=== PATIENT | male | born 1965 | race Caucasian/White ===

== ENCOUNTER 2020-08-26 06:02 | Inpatient (IN) | payer OTHER ==
--- OUTSIDE RECORDS SUMMARY | 2020-08-26 06:07 | XMS REPORT | Continuity of Care Document ---
:1965 Author Organization [facility] t Address [address] [place] [address] Care Team Providers Name Role Phone Ronnie Taylor Attending Clinician Eliud Taylor Admitting Clinician Problems Condition Condition Condition Status Onset Resolution Last Treating Co mments Source Name Details Category Date Date Treatment Clinician Date WEAKNESS Diagnosis Active 2019-08-14 M emoria 08-13 18:38:00 l WEAKNESS 00:00: [place] n 00 Active 08/14/2019 [place] NITHYA Diagnosis Active 2019-08-15 [facility] oria HEMATURIA/ 08-13 13:16:00 l ANEMIA NITHYA 00:00: [place] HEMATURIA/ 00 ANEMIA Active 08/14/2019 [facility] UTI, AMS, Diagnosis Active 2019-09-16 Memoria SEPSIS 08-13 13:26:00 l UTI, 00:00: [place] AMS, 00 SEPSIS Active 08/14/2019 [facility] ALTERED Diagnosis Active 2019-09-16 Me moria MENTAL 13:26:00 l STATUS, ALTERED Kiel n UNSPECIFIE MENTAL D STATUS, UNSPECIFIE D Active [facility] SEPSIS, Diagnosis Active 2019-09-16 Me moria UNSPECIFIE 13:26:00 l D ORGANISM SEPSIS, Her ramirez UNSPECIFIE D ORGANISM Active [facility] URINARY Diagnosis Active 2019-08-16 Me moria TRACT 16:40:00 l INFECTION, URINARY Her ramirez SITE NOT TRACT SPECIFIED INFECTION, SITE NOT SPECIFIED Active [facility] Bipolar Problem Active 2019-08-19 Yves summer disorder 22:00:09 l (disorder) Bipolar Her ramirez disorder (disorder) Active Problem 08/19/2019 [place] URINARY Diagnosis Active 2019-09-16 Me moria TRACT 13:26:00 l INFECTION, URINARY Her ramirez SITE NOT TRACT SPECIF INFECTION, SITE NOT SPECIF Active [facility] Allergies, Adverse Reactions, Alerts Allergy Allergy Status Severity Reaction(s) Onset Inactive Treating Comm ents Source Name Type Date Date Clinician No Known No Known Active Memori a Medicati Medicati l on on Tai Allergie Allergsarmad s s Social History Social Habit Start Date Stop Date Quantity Comments Source Social History 2019-06-01 2019-06-01 [facility] 10:40:52 10:40:52 Medications Ordered Filled Start Stop Current Ordering Indication Dosage Frequency Signature Comments Components Source Medication Medication Date Date Medication? Clinician (SIG) Name Name Cefuroxime Yes 500 mg = 1 M emoria 500 MG Oral 08-16 tab, PO, l Tablet 19:20: BID, X 7 [place] [Ceftin] 00 day, # 14 tab, 0 Refill(s), Pharmacy: [id number] Acetaminoph No Notes: Do M emoria en 08-15 not exceed l 12:59: 4 gm/day. [place] 00 (Same as: Tylenol) normal No 1,000 mL, Memori a saline 0.9% 08-15 Rate: 60 l IV 1,000 mL 12:52: ml/hr, Infuse over: 16.7 hr, Route: IV, Dosing Weight 95.455 kg, Total Volume: 1,000, Start date: 08/16/19 7:52:00 CDT, Duration: 1 day, Stop date: 08/17/19 7:51:00 CDT, 2.16, m2, 0 Famotidine No Notes: Memor ia 20 MG Oral 08-15 (Same as: l Tablet 02:00: Pepcid AC) Mariel[place] nn [Pepcid] Ceftriaxone No Notes: Yves summer - (Same As: l 21:00: Rocephin). Use with 100 mL NS and infuse over 30 min MEDICATION WASTE Product Size: 1000 mg Product Wasted: ___ mg phenol No Notes: Memoria 4-26 WASTE: F/P l 17:29: - Black; E - Municipal Trash Bin Docusate No Notes: Memoria Sodium 100 - (Same as: l MG Oral 17:29: Colace) [place] Capsule (Do Not [Colace] Crush) Hydralazine No Notes: Yves summer 08-14 (Same as: l 17:29: Apresoline Tai ) Push over 5 minutes Imodium A-D No Notes: Yves summer 08-14 (Same as: l 17:29: Imodium) Tai 00 MAX adult dose is 8 caps/day Miralax No Notes: Memoria - Dissolve l 17:29: in 8 oz of Tai 00 water or juice. (Same as: Miralax) Zyrtec No Notes: Memoria 08-14 (Same As: l 17:29: Zyrtec) Acetaminoph No Notes: Yves summer en 325 MG / 08-14 (Same as: l Hydrocodone 17:29: [place] Marielos nn Bitartrate 00 325/5) Do 5 MG Oral not exceed Tablet 4gm/day of [[place] acetaminop 5/325] hen. Tums No Notes: Memoria 08-14 (Same As: l 17:29: Tums) Calcium Carbonate 500 mg = 200 mg elemental calcium Dose = mg calcium carbonate ( mg elemental calcium) Zofran No Notes: Memoria 08-14 (Same as: l 17:29: Zofran) MEDICATION WASTE Product Size: 4 mg Product Wasted: ___ mg Docusate No Notes: Memoria 08-14 (Same as: l 14:00: Colace) Tai (Do Not Crush) duloxetine No Notes: Memor ia 08-14 (Same as: l 14:00: Cymbalta) Tai (Do Not Crush) Risperidone No Notes: Yves summer 08-14 (Same as: l 14:00: Risperdal) Hazardous Drug Group 2:Non-anti neoplastic Hazardous Drug -- Refer to safe handling procedure PPE Matrix atorvastati No Notes: Yves summer n 08-14 (Same As: l 03:01: Lipitor) DULoxetine 2020-0 Yes 60 mg = 1 Me moria 60 mg oral 4-26 cap, PO, l delayed 02:15: Daily, # Kiel n release 00 30 cap, 0 capsule Refill(s) Risperidone 2019-0 Yes 1 mg = 1 Me moria 1 MG Oral 4-26 tab, PO, l Tablet 02:15: Daily, # Tai [Risperdal] 00 60 tab, 0 Refill(s) atorvastati 2019-0 Yes 20 mg = 1 M emoria n 20 mg 4-26 tab, PO, l oral tablet 02:15: Bedtime, # Tai 00 30 tab, 0 Refill(s) sennosides, 2020-0 No Notes: Yves summer CARE HOME - (Same as: l 02:00: Senokot) Dextrose 2019-0 No 12.5 gm, Memor ia 50% Syringe -25 25 mL, l (D50W) 23:46: Route: IVP, Drug Form: INJ, Dosing Weight 95.455, kg, PRN, PRN Blood Glucose Results, Start date: 08/14/19 18:46:00 CDT, Duration: 30 day, Stop date: 09/13/19 18:45:00 CDT, 0 Glucagon 2019-0 No 1 mg, Memoria -25 Route: IM, l 23:46: Drug form: PDR/INJ, PRN, Dosing Weight 95.455, kg, PRN Blood Glucose Results, Start date: 08/14/19 18:46:00 CDT, Duration: 30 day, Stop date: 09/13/19 18:45:00 CDT, 0 Sodium 2020-0 No 1,000 mL, Memori a Chloride -25 1000 l 0.9% 18:52: ml/hr, Tai (Bolus) IV 00 Infuse Over: 1 hr, Route: IV, 1,000, Drug form: INJ, ONCE, Priority: STAT, Dosing Weight 95.455 kg, Start date: 08/14/19 13:52:00 CDT, Stop date: 08/14/19 13:52:00 CDT, 0 Ceftriaxone 2020-0 No Notes: Yves summer 4-25 (Same As: l 18:52: Rocephin). Tai 00 Use with 100 mL NS and infuse over 30 min MEDICATION WASTE Product Size: 1000 mg Product Wasted: ___ mg Azithromyci No Notes: Yves summer n 4-25 (Same As: l 18:52: Zithromax [place] 00 IV) Vital Signs Vital Name Observation Time Observation Value Comments Source Temperature Oral (F) 2019-08-17 16:46:00 98.3 F [facility] [place] Heart Rate 2019-08-17 16:46:00 [facility] [place] Respitory Rate 2019-08-17 16:46:00 Memori al [place] Systolic (mm Hg) 2019-08-17 16:46:00 Yves rial [place] Diastolic (mm Hg) 2019-08-17 16:46:00 Mem orial Tai Temperature Oral (F) 2019-08-17 12:08:00 98.5 F [facility] [place] Heart Rate 2019-08-17 12:08:00 [facility] [place] Respitory Rate 2019-08-17 12:08:00 Memori al [place] Systolic (mm Hg) 2019-08-17 12:08:00 Yves rial [place] Diastolic (mm Hg) 2019-08-17 12:08:00 Mem orial Tai Temperature Oral (F) 2019-08-17 09:38:00 98.3 F [facility] [place] Heart Rate 2019-08-17 09:38:00 [facility] [place] Respitory Rate 2019-08-17 09:38:00 [facility] al [place] Systolic (mm Hg) 2019-08-17 09:38:00 Yves rial [place] Diastolic (mm Hg) 2019-08-17 09:38:00 Mem orial [place] Height 2019-08-16 15:17:00 172.72 cm [facility] [place] Weight 2019-08-16 13:42:00 [facility] [place] Height 2019-08-15 02:07:00 172.72 cm [facility] [place] Weight 2019-08-15 02:07:00 [facility] [place] BMI Calculated 2019-08-15 02:07:00 Mem[facility] al [place] Height 2019-08-14 18:47:00 172.72 cm [facility] [place] BMI Calculated 2019-08-14 18:47:00 Memori al [place] Weight 2019-08-14 18:47:00 [facility] [place] Procedures This patient has no known procedures. Encounters Start End Encounter Admission Attending Care Care Encounter Source Date/Time Date/Time Type Type Clinicians Facility Department ID 2019-08-14 2019-08-17 Outpatient CEDRIC Taylor [facility] [id number] 13:45:16 16:18:00 Ronniedamián Kline 2019-08-16 2019-08-14 Inpatient E [id number] [facility] 07:51:00 18:[facility]:[address] [facility] 2019-06-01 2019-06-01 Outpatient E [facility] [id number] 03:18:00 03:18:[address] [facility] 2016-09-22 2017-06-17 Outpatient [facility] [id number] 00:00:00 00:00:[address] [facility] 2017-06-15 2017-06-15 Outpatient [facility] [id number] [place] 02:12:01 02:12:[address] [facility] Results Test Description Test Time Test Comments Results Result Comments Source CHEM PANEL 2019-08-16 85 [facility] [place] 08:12:00 CHEM PANEL 2019-08-16 11 [facility] [place] 08:12:00 CHEM PANEL 2019-08-16 0.75 [facility] [place] 08:12:00 CHEM PANEL 2019-08-16 136 [facility] [place] 08:12:00 CHEM PANEL 2019-08-16 3.7 [facility] [place] 08:12:00 CHEM PANEL 2019-08-16 106 [facility] [place] 08:12:00 CHEM PANEL 2019-08-16 25 [facility] [place] 08:12:00 CHEM PANEL 2019-08-16 8.6 [facility] [place] 08:12:00 CHEM PANEL 2019-08-16 8.7 [facility] [place] 08:12:00 CHEM PANEL 2019-08-16 119 [facility] [place] 08:12:00 HEMATOLOGY 2019-08-16 71.5 [facility] [place] 08:12:00 HEMATOLOGY 2019-08-16 17.0 [facility] [place] 08:12:00 HEMATOLOGY 2019-08-16 8.3 [facility] [place] 08:12:00 HEMATOLOGY 2019-08-16 3.0 [facility] [place] 08:12:00 HEMATOLOGY 2019-08-16 0.2 [facility] [place] 08:12:00 HEMATOLOGY 2019-08-16 6.1 [facility] [place] 08:12:00 HEMATOLOGY 2019-08-16 1.4 [facility] [place] 08:12:00 HEMATOLOGY 2019-08-16 0.7 [facility] [place] 08:12:00 HEMATOLOGY 2019-08-16 0.3 [facility] [place] 08:12:00 HEMATOLOGY 2019-08-16 8.5 [facility] [place] 08:12:00 HEMATOLOGY 2019-08-16 4.21 [facility] [place] 08:12:00 HEMATOLOGY 2019-08-16 13.5 [facility] [place] 08:12:00 HEMATOLOGY 2019-08-16 39.9 [facility] [place] 08:12:00 HEMATOLOGY 2019-08-16 94.9 [facility] [place] 08:12:00 HEMATOLOGY 2019-08-16 08:12:00 Test Item Value Reference Range Interpretation Comme nts MCH (test code = MCH) 32.1 pg 27.0-31.0 [facility] [id number] 08:12:0033.9[facility] HermannHEMATOLOGY 2019-08-16 08:12:0012.5[facility] GhigdetCPWLZGSEXN1587-97-40 08:12:89449Otburjay PhevmbrAWPYMGRYVC4309-14-80 08:12:009.6[facility] HermannCHEM [id number] 03:10:000.12[facility] HermannDRUG [id number] 21:27:00Negative *NA*(08/14/19 4:27 PM)[facility]ann[facility] [id number] 21:27:00Negative *NA*(08/14/19 4:27 PM)[facility] [id number] 21:27:00Negative *NA*(08/14/19 4:27 PM) [facility] [id number] 21:27:00Negative *NA*(08/14/19 4:27 PM) [facility] [id number] 21:27:00Negative *NA*(08/14/19 4:27 PM) [facility] [id number] 21:27:00See Note (08/14/19 4:27 PM)[facility] HermannIMIPENEM:SUSC:PT:ISOLATE:ORDQN:[id number] 21:27:00Escherichia coli [facility] AND [id number] 21:27:00Yellow *NA*(08/14/19 4:27 PM) [facility] [id number] 21:27:00Slight *ABN*(08/14/19 4:27 PM) [facility] [id number] 21:27:00 Test Item Value Reference Range Interpretation Comments UA Spec Grav (test code = UA Spec 1.018 1 Grav) [facility] [id number] 21:27:00 Test Item Value Reference Range Interpretation Comments UA pH (test code = UA pH) 5.0 1 5.0-8.0 [facility] [id number] 21:27:00Negative *NA*(08/14/19 4:27 PM) [facility] [id number] 21:27:00Large *ABN*(08/14/19 4:27 PM) [facility] [id number] 21:27:00Positive *ABN*(08/14/19 4:27 PM)[facility] [id number] 21:27:00Moderate *ABN*(08/14/19 4:27 PM)[facility] [id number] 21:27:0059[facility] AND [id number] 21:27:0018[facility]annDRUG [id number] 21:27:00 Negative *NA*(08/14/19 4:27 PM)[facility]annDR[facility] [id number] 21:27:00 Negative *NA*(08/14/19 4:27 PM)[facility] HermannCARDIAC [id number] 19:37:00 33[facility] HermannCARDIAC [id number] 19:37:00<0.02[facility] HermannCHEM [id number] 19:37:50501Cctufpbw HermannCHEM [id number] 19:37:0010 [facility]annCHEM [id number] 19:37:000.75[facility] HermannCHEM PANEL 2019-08-14 19:37:50607Rwybehui HermannCHEM [id number] 19:37:003.7[facility] HermannCHEM [id number] 19:37:57693Ohvxjmrv HermannCHEM ODQSP8184-53-23 19:37:0025[facility] HermannCHEM [id number] 19:37:009.3[facility] HermannCHEM BKUKS5575-33-15 19:37:007.5[facility] HermannCHEM [id number] 19:37:003.6 [facility]annCHEM [id number] 19:37:0088[facility] HermannCHEM PANEL 2019-08-14 19:37:0024[facility] HermannCHEM [id number] 19:37:74220Dfcnmooc HermannCHEM [id number] 19:37:001.1[facility] HermannCHEM [id number] 19:37:0011.7[facility] HermannCHEM [id number] 19:37:00 Test Item Value Reference Range Interpretation Comments B/C Ratio (test code = B/C Ratio) 13 1 10-13 [facility] HermannCHEM [id number] 19:37:003.9[facility] HermannCHEM PANEL 2019-08-14 19:37:00 Test Item Value Reference Range Interpretation Comments A/G Ratio (test code = A/G Ratio) 0.9 1 0.7-1.6 [facility]annCHEM [id number] 19:37:87061Qgogqfue HermannCHEM PANEL 2019-08-14 19:37:001.1[facility] HermannCHEM [id number] 19:37:0027.0[facility] HermannCHEM [id number] 19:37:0061[facility] OkunbquMLXNKCFCUA1251-57-62 19:37:0014.1[facility] CaztzikQQDXMSTUEB1600-33-47 19:37:004.72[facility] Tai [id number] 19:37:0015.1[facility] NhdjutzDAPMYZLVEV8562-67-07 19:37:00 45.1[facility] BhwlqeeBGINUGNJFG1853-42-67 19:37:0095.6[facility] HermannHEMATOLOGY 2019-08-14 19:37:00 Test Item Value Reference Range Interpretation Comments MCH (test code = MCH) 32.0 pg 27.0-31.0 [facility] UghyavhGQDBAQCNQP2654-97-93 19:37:0033.5[facility] HermannHEMATOLOGY 2019-08-14 19:37:0012.6[facility] OohkxhgFJGFJERKFS9358-98-97 19:37:68691Amwzkxjn EujjthzHQYEHOHTOS2241-91-80 19:37:009.6[facility] NlfncnsSZZPXXWMPA5792-14-15 19:37:0085.0[facility] PlujggjWIBKGWWXDD5069-24-10 19:37:007.7[facility] [place] XHXGCZJZRB8939-02-60 19:37:006.7[facility] YmfvmwlFGDKSOEQHV5665-12-70 19:37:000.4 [facility] EldaoyeCJVVMXZUJD5758-44-11 19:37:000.2[facility] HermannHEMATOLOGY 2019-08-14 19:37:0012.0[facility] JjtwncwNDWYPDUVYS9195-98-68 19:37:001.1[facility] YksiktlEDOWDFGQFT2988-81-61 19:37:000.9[facility] MilfosnZCAVGPVEAF7313-68-51 19:37:000.1[facility] CarffpuUOSOIXOSRT3028-16-77 19:37:00Not Detected (08/14/19 2:37 PM)[facility]
[2020-08-26 06:32] LABS: Absolute Lymphocytes (CBC) 0.4 K/uL (0.7-4.9); Basophils % 0.1 % (0-1.3); Lymphocytes % 8.5 % (15.3-44.8); MPV 9.8 fL (7.6-11.3); RBC Red Blood Cell Count 4.58 M/uL (4.33-5.43)
[2020-08-26] MEDS ORDERED: ACETAMINOPHEN 325 MG TABLET ONE (06:45)
[2020-08-26] MEDS ORDERED: NA CHLORIDE 0.9% 1,000 ML ONE ×5 (06:45→11:34)
[2020-08-26] MEDS ORDERED: PANTOPRAZOLE 40 MG INJ ONE (06:45)
[2020-08-26] MEDS ORDERED: NA CHLORIDE 0.9% 250 ML ONE (06:45)
[2020-08-26 06:46] LABS: Protime INR 1.06
[2020-08-26 06:52] LABS: ALT/SGPT 34 U/L (12-78); AST/SGOT 19 U/L (15-37); Albumin 3.5 g/dL (3.4-5.0); Alkaline Phosphatase 108 U/L (45-117); BUN Blood Urea Nitrogen 13 mg/dL (7-18); Bicarbonate 23 mmol/L (21-32); Bilirubin Direct 0.2 mg/dL (0-0.2); Bilirubin Total 0.9 mg/dL (0.2-1.0); Glucose Level 130 mg/dL (74-106); Lipase 50 U/L (73-393); Potassium 3.2 mmol/L (3.5-5.1); Protein, Total 7.1 g/dL (6.4-8.2); Sodium Level 145 mmol/L (136-145)
[2020-08-26] MEDS ORDERED: CEFTRIAXONE/SWI 1gm 1 GM/10 ML SYR ONE (07:03)
[2020-08-26] MEDS ORDERED: METRONIDAZOLE 500mg IVPB 500 MG/100 ML BAG IV ONE ×2 (07:03→14:02)
[2020-08-26] MEDS ORDERED: MORPHINE 2 MG/ML SYR ONE ×4 (07:05→23:39)
[2020-08-26] MEDS ORDERED: ONDANSETRON 4 MG/2 ML VIAL ONE (07:05)
[2020-08-26 07:13] LABS: Blood Morphology Comment NOTED (NOT SEEN); Hypochromasia 2+; Platelet Estimate ADEQ; Polychromasia SLIGHT; Toxic Granulation PRESENT
--- NOTE | 2020-08-26 08:50 | ER ---
Nurse's Notes [facility] Min Name: Geoff Velez Age: 54 yrs Sex: Male : 1965 Arrival Date: 08/26/2020 Time: 06:08 Bed External Waiting Private MD: Diagnosis: Gastrointestinal hemorrhage, unspecified;Fever, unspecified;Perforation of intestine (nontraumatic)-rectosigmoid colon,moderate pneumoperitoneum;Bandemia;Hypokalemia;Multiple sclerosis;Paraplegia Presentation: 08/26 06:14 Chief complaint: EMS states: they were toned out for report of pt having a large bloody bb bowel movement this morning, pt c/o abdominal pain as well. Coronavirus screen: At this time, the client does not indicate any symptoms associated with coronavirus-19. Ebola Screen: No symptoms or risks identified at this time. Initial Sepsis Screen: Does the patient meet any 2 criteria? RR > 20 per min. HR > 90 bpm. Yes Does the patient have a suspected source of infection? Yes: Acute abdominal pain. Risk Assessment: Do you want to hurt yourself or someone else? Patient reports no desire to harm self or others. Onset of symptoms was August 26, 2020. 06:14 Method Of Arrival: EMS: [facility] bb 06:14 Acuity: MARKEL 2 bb Historical: - Allergies: 06:18 No Known Allergies; bb - PMHx: 08:45 Multiple Sclerosis; hep C; paraplegia; CVA; postlaminectomy syndrome; em - Immunization history:: Adult Immunizations up to date. - Social history:: Smoking status: unknown. Screenin:00 Abuse screen: Denies threats or abuse. Nutritional screening: On. Tuberculosis wh screening: No symptoms or risk factors identified. Fall Risk IV access (20 points). Assessment: 06:30 General: Appears uncomfortable, Behavior is calm. Pain: Denies pain. Neuro: Level of ea Consciousness is awake, alert, obeys commands, Oriented to person, place. Cardiovascular: Patient's skin is warm and dry. Respiratory: Airway is patent Respiratory effort is even, unlabored, Respiratory pattern is regular, symmetrical. GI: Abdomen is non-distended. Derm: Skin is dry, Skin is pale, Skin temperature is hot. 07:15 Reassessment: Patient appears in no apparent distress at this time. Patient and/or em family updated on plan of care and expected duration. Pain level reassessed. Patient is alert, oriented x 3, equal unlabored respirations, skin warm/dry/pink. 08:30 Reassessment: Patient appears in no apparent distress at this time. Patient and/or em family updated on plan of care and expected duration. Pain level reassessed. Patient is alert, oriented x 3, equal unlabored respirations, skin warm/dry/pink. 09:30 Reassessment: pt had bloody BM, changed linen and applied new brief. em 10:15 Reassessment: oral temp. 100.6, Dr. Sanchez notified, received VO for NS 1 L IV, and em 650 Tylenol ND x 2 for temp. 11:08 Reassessment: Awaiting for DR. Dailey for surgical consult/ surgery. ss 11:55 Reassessment: pending surgeon and OR crew to take pt to surgery. em 12:37 Reassessment: Dr. Dailey at bedside. ss 12:52 Reassessment: report given to EVA Brambila, pt will be going to the OR. em 13:05 Reassessment: pt taken to OR, household manager notified, instructed to hold pt in the em ED until they have a nurse available for ICU, charge nurse notified. 16:47 Reassessment: Pt to go to non COVID ICU after surgery. Vital Signs: 06:14 BP 147 / 99; Pulse 133; Resp 24 S; Temp 100.5(O); Pulse Ox 94% on R/A; Weight 79.38 kg bb (R); Height 5 ft. 8 in. (172.72 cm) (R); 07:00 BP 136 / 98; Pulse 131; Resp 24; Pulse Ox 96% ; sv 07:45 BP 152 / 99; Pulse 135; Resp 24; Pulse Ox 96% ; sv 08:45 BP 143 / 99; Pulse 142; Resp 22; Pulse Ox 96% ; sv 09:15 BP 133 / 90; Pulse 141; Resp 20; Pulse Ox 98% ; sv 09:57 BP 129 / 94; Pulse 129; Resp 18 S; Pulse Ox 95% on R/A; em 10:17 Temp 100.6(O); em 11:15 BP 123 / 88; Pulse 128; Resp 21; Pulse Ox 95% ; sv 11:55 BP 122 / 82; Pulse 128; Resp 22; Pulse Ox 97% on R/A; em 12:45 BP 110 / 89; Pulse 131; Resp 20; Pulse Ox 100% on R/A; em 06:14 Body Mass Index 26.61 (79.38 kg, 172.72 cm) bb ED Course: 06:08 Patient arrived in ED. bb 06:11 Saman Holloway MD is Attending Physician. [facility] 06:16 Triage completed. bb 06:18 Arm band placed on Patient placed in an exam room, on a stretcher, on development chemist, bb on pulse oximetry. 06:30 Patient has correct armband on for positive identification. Placed in gown. Bed in low ea position. Call light in reach. Side rails up X2. 06:51 Chest Single View XRAY In Process Unspecified. EDMS 06:59 Inserted saline lock: 22 gauge in right forearm, using aseptic technique. Maintain EMS wh IV. Dressing intact. Good blood return noted. Site clean \T\ dry. Gauge \T\ site: 20 G left AC . 07:01 Marcos Kaufman, RN is Primary Nurse. em 07:16 Notified ED physician of a critical lab result(s). lactate of 3.1 Dr Holloway notified. bb 08:15 Attending Physician role handed off by Saman Holloway MD eric 08:15 Teodoro Sanchez MD is Attending Physician. eric 08:18 Basic Metabolic Panel Sent. sv 08:21 initiated a transfer with SAMUEL Card from the [facility]. eb 08:45 connected the hospitalist foundation relations director for [facility] with Dr. Sanchez for patient transfer consultation. 08:47 administrative approval given by SAMUEL Card/ Patient has been accepted to [facility] 5th floor room 502/ Dr. Faith has accepted the patient in transfer/ report to be called to [phone]. 09:01 CT Abd/Pelvis - IV Contrast Only In Process Unspecified. EDMS 09:32 Alena Franks MD is Hospitalizing Provider. eric 10:00 Varma cath inserted, using sterile technique, 16 Fr., by or, balloon inflated, urine em specimen collected. returned clear yellow urine. Patient tolerated well. 12:53 No provider procedures requiring assistance completed. Patient admitted, IV remains in em place. Administered Medications: 06:20 Drug: NS 0.9% 1000 ml Route: IV; Rate: 1000 ml; Site: left antecubital; 06:28 Drug: ProTONIX (pantoprazole) 80 mg Route: IVP; Site: left antecubital; 07:04 Follow up: Response: No adverse reaction ea 06:35 Drug: ProTONIX (pantoprazole) 8 mg/hr Route: IV; Rate: 25 ml/hr; Site: left antecubital;ea 11:30 Follow up: Response: No adverse reaction; IV Status: Order to discontinue infusion; IV em Intake: 50ml 06:50 Drug: Rocephin (cefTRIAXone) 1 grams Route: IV; Rate: per protocol; Site: right hand; 08:00 Follow up: Response: No adverse reaction; IV Status: Completed infusion; IV Intake: 10mlem 06:57 Drug: Flagyl (metroNIDAZOLE) 500 mg Volume: 100 ml; Route: IVPB; Rate: 200 ml/hr; Infused Over: 30 mins; Site: right hand; 08:00 Follow up: Response: No adverse reaction; IV Status: Completed infusion; IV Intake: em 100ml 07:03 Drug: Tylenol 650 mg Route: PO; ea 07:04 Follow up: Response: No adverse reaction ea 07:06 Drug: morphine 2 mg Route: IVP; Site: left antecubital; ea 08:36 Follow up: Response: No adverse reaction; Marked relief of symptoms; Pain is decreased em 07:07 Drug: Zofran (Ondansetron) 4 mg Route: IVP; Site: left antecubital; ea 08:00 Follow up: Response: No adverse reaction em 07:51 Drug: NS 0.9% 1000 ml Route: IV; Rate: 1 bolus; Site: right forearm; em 09:00 Follow up: IV Status: Completed infusion; IV Intake: 1000ml em 09:00 Drug: Cipro (ciprofloxacin) 400 mg Volume: 200 ml; Route: IVPB; Infused Over: 60 mins; em Site: left antecubital; 10:30 Follow up: IV Status: Completed infusion; IV Intake: 100ml em 09:00 Drug: NS 0.9% 1000 ml Route: IV; Rate: 1 bolus; Site: left antecubital; em 11:00 Follow up: IV Status: Completed infusion; IV Intake: 1000ml em 09:00 Drug: NS 0.9% with KCl 20 mEq/L 1000 ml Route: IV; Rate: 125 ml/hr; Site: left em antecubital; 12:56 Follow up: IV Status: Infusion continued upon admission em 09:14 Not Given (Physician Discretion): NS 0.9% 1000 ml IV at 125 ml/hr continuous em 10:02 Drug: morphine 2 mg Route: IVP; Site: left antecubital; em 11:00 Follow up: Response: No adverse reaction em 10:17 Drug: Zosyn (piperacillin-tazobactam) 3.375 grams Route: IVPB; Infused Over: 60 mins; em Site: left antecubital; 11:14 Follow up: IV Status: Completed infusion ss 11:14 Drug: Tylenol Suppository 650 mg Route: ND; ss 12:56 Follow up: Response: No adverse reaction em 11:14 Drug: Tylenol Suppository 650 mg Route: ND; ss 12:56 Follow up: Response: No adverse reaction em 11:17 Drug: NS 0.9% 1000 ml Route: IV; Rate: 1 bolus; Site: right forearm; em 12:55 Follow up: IV Status: Completed infusion; IV Intake: 1000ml em Intake: 08:00 IV: 10ml; Total: 10ml. em 08:00 IV: 100ml; Total: 110ml. em 09:00 IV: 1000ml; Total: 1110ml. em 10:30 IV: 100ml; Total: 1210ml. em 11:00 IV: 1000ml; Total: 2210ml. em 11:30 IV: 50ml; Total: 2260ml. em 12:55 IV: 1000ml; Total: 3260ml. em Outcome: 08:50 ER care complete, transfer ordered by . eric 09:36 Decision to Hospitalize by Provider. [facility] 13:05 Admitted to OR accompanied by nurse, via stretcher, with chart, Report called to brenda Hull RN 13:05 Condition: stable 14:31 Instructed on the need for admit. ss 16:47 Patient left the ED. em Signatures: Dispatcher [facility] Riri Barragan RN RN sv Anderson, Corey, MD MD cha Kaufman, Marcos, RN RN Jessica Montemayor, RN RN Elyse Barros, RN Kristal Lemus RN RN ea Habalo, Winsy, Carol Phillips RN, Maurice, MD MD [id number]
--- NOTE | 2020-08-26 08:50 | EDPHYS ---
Physician Documentation [facility] Name: Geoff Velez Age: 54 yrs Sex: Male : 1965 Arrival Date: 08/26/2020 Time: 06:08 Bed External Waiting Private MD: ED Physician Teodoro Sanchez HPI: 08/26 06:32 This 54 yrs old Unknown Male presents to ER via EMS with complaints of GI Bleeding. mh7 06:33 The patient presents to the emergency department with rectal bleeding, a large amount, mh7 dark red blood with bowel movement in a single episode. Onset: The symptoms/episode began/occurred today, at an unknown time. Abdominal pain: described as intermittent, vague,\\E\\ located in the abdomen diffusely, that does not radiate. Modifying factors: The symptoms are alleviated by nothing, the symptoms are aggravated by nothing. Associated signs and symptoms: Pertinent negatives: anorexia, chest pain, constipation, diarrhea, dizziness at rest, fever, shortness of breath, syncope, near-syncope, vomiting. Severity of symptoms: At their worst the symptoms were moderate today, in the emergency department the symptoms are unchanged. Historical: - Allergies: 06:18 No Known Allergies; bb - PMHx: 08:45 Multiple Sclerosis; hep C; paraplegia; CVA; postlaminectomy syndrome; em - Immunization history:: Adult Immunizations up to date. - Social history:: Smoking status: unknown. ROS: 06:33 Eyes: Negative for injury, pain, redness, and discharge, ENT: Negative for injury, mh7 pain, and discharge, Neck: Negative for injury, pain, and swelling, Cardiovascular: Negative for chest pain, palpitations, and edema, Respiratory: Negative for shortness of breath, cough, wheezing, and pleuritic chest pain, Back: Negative for injury and pain, : Negative for injury, bleeding, discharge, and swelling, MS/Extremity: Negative for injury and deformity, Skin: Negative for injury, rash, and discoloration, Neuro: Negative for headache, weakness, numbness, tingling, and seizure, Psych: Negative for depression, anxiety, suicide ideation, homicidal ideation, and hallucinations, Allergy/Immunology: Negative for hives, rash, and allergies, Endocrine: Negative for neck swelling, polydipsia, polyuria, polyphagia, and marked weight changes, Hematologic/Lymphatic: Negative for swollen nodes, abnormal bleeding, and unusual bruising. Exam: 06:33 Head/Face: Normocephalic, atraumatic. mh7 06:33 Neck: Trachea midline, no thyromegaly or masses palpated, and no cervical lymphadenopathy. Supple, full range of motion without nuchal rigidity, or vertebral point tenderness. No Meningismus. Chest/axilla: Normal chest wall appearance and motion. Nontender with no deformity. No lesions are appreciated. 06:33 Back: No spinal tenderness. No costovertebral tenderness. Full range of motion. Skin: Warm, dry with normal turgor. Normal color with no rashes, no lesions, and no evidence of cellulitis. 06:33 Constitutional: The patient appears in no acute distress, alert, awake, obviously ill. 06:33 Eyes: Periorbital structures: appear normal, Pupils: equal, round, and reactive to light and accomodation, Extraocular movements: intact throughout, Conjunctiva: pale, bilaterally. 06:33 Cardiovascular: Rate: tachycardic, Rhythm: regular, Pulses: no pulse deficits are appreciated, Heart sounds: normal, normal S1and S2, Edema: is not appreciated, JVD: is not appreciated. 06:33 Respiratory: the patient does not display signs of respiratory distress, Respirations: normal, Breath sounds: rhonchi, that are mild, are scattered, Respiratory rate: 24 06:33 Abdomen/GI: Inspection: abdomen appears normal, Bowel sounds: normal, in all quadrants, Palpation: mild abdominal tenderness, in all quadrants, mass, is not appreciated, rebound tenderness, is not appreciated, voluntary guarding, is not appreciated, involuntary guarding, is not appreciated, no appreciated organomegaly, Rectal exam: Stool: guaiac positive, maroon, Indicators: McBurney's point is not tender, Leblanc's sign is negative, Rovsing's sign is negative, Obturator sign is negative, Psoas sign is negative, Liver: no appreciated palpable abnormalities, Hernia: not appreciated. 07:54 Neuro: Orientation: is normal, Mentation: is normal, Memory: is normal, Cranial nerves: mh7 grossly normal, Cerebellar function: is grossly normal, Motor: paraplegia, baseline, Sensation: decreased sensation bilateral lower extremities, baseline, Gait: not tested. seizure activity, is not displayed by the patient, Abnormal movements: there are no abnormal movements. Vital Signs: 06:14 BP 147 / 99; Pulse 133; Resp 24 S; Temp 100.5(O); Pulse Ox 94% on R/A; Weight 79.38 kg bb (R); Height 5 ft. 8 in. (172.72 cm) (R); 07:00 BP 136 / 98; Pulse 131; Resp 24; Pulse Ox 96% ; sv 07:45 BP 152 / 99; Pulse 135; Resp 24; Pulse Ox 96% ; sv 08:45 BP 143 / 99; Pulse 142; Resp 22; Pulse Ox 96% ; sv 09:15 BP 133 / 90; Pulse 141; Resp 20; Pulse Ox 98% ; sv 09:57 BP 129 / 94; Pulse 129; Resp 18 S; Pulse Ox 95% on R/A; em 10:17 Temp 100.6(O); em 11:15 BP 123 / 88; Pulse 128; Resp 21; Pulse Ox 95% ; sv 11:55 BP 122 / 82; Pulse 128; Resp 22; Pulse Ox 97% on R/A; em 12:45 BP 110 / 89; Pulse 131; Resp 20; Pulse Ox 100% on R/A; em 06:14 Body Mass Index 26.61 (79.38 kg, 172.72 cm) bb MDM: 08:15 Patient medically screened. eric 08:50 Differential diagnosis: diverticulitis, hemorrhoids, varices. Data reviewed: vital eric signs, nurses notes, EMS record, lab test result(s), EKG, radiologic studies, CT scan, plain films. 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 Test interpretation: by ED physician or midlevel provider: ECG, plain radiologic studies. Counseling: I had a detailed discussion with the patient and/or guardian regarding: the historical points, exam findings, and any diagnostic results supporting the discharge/admit diagnosis, lab results, radiology results, the need to transfer to another facility, for higher level of care, [facility] does not immediately have the required specialist. 08/26 06:14 Order name: Basic Metabolic Panel [facility] 08/26 06:14 Order name: CBC with Diff; Complete Time: 07:51 [facility] 08/26 06:14 Order name: Hepatic Function; Complete Time: 07:03 [facility] 08/26 06:14 Order name: Lipase; Complete Time: 07:03 [facility] 08/26 06:14 Order name: Protime (+inr); Complete Time: 07:51 [facility] 08/26 06:14 Order name: Ptt, Activated; Complete Time: 07:51 [facility] 08/26 06:14 Order name: Type And Screen [facility] 08/26 06:15 Order name: Basic Metabolic Panel; Complete Time: 07:03 [facility] 08/26 06:20 Order name: Troponin (emerg Dept Use Only); Complete Time: 07:51 [facility] 08/26 06:20 Order name: Blood Culture Adult (2) [facility] 08/26 06:20 Order name: Lactate; Complete Time: 07:51 [facility] 08/26 06:20 Order name: Procalcitonin; Complete Time: 07:51 [facility] 08/26 06:21 Order name: Urine Culture [facility] 08/26 06:35 Order name: Manual Differential; Complete Time: 07:51 [facility] 08/26 06:21 Order name: Chest Single View XRAY [facility] 08/26 08:05 Order name: ABO/RH no charge; Complete Time: 08:15 [facility] 08/26 08:16 Order name: COVID-19 : Document "Date of Symptom Onset" if Symptomatic. eb 08/26 08:17 Order name: CORONAVIRUS [facility] 08/26 09:52 Order name: SARS-COV-2 RT PCR [facility] 08/26 10:13 Order name: Lactate Sepsis 2 HR Follow-up [facility] 08/26 10:15 Order name: Urine Dipstick-Ancillary [facility] 08/26 10:25 Order name: Comprehensive Metabolic Panel [facility] 08/26 10:25 Order name: Comprehensive Metabolic Panel [facility] 08/26 10:25 Order name: Magnesium EDMS 08/26 10:25 Order name: Magnesium EDMS 08/26 10:25 Order name: Phosphorus EDMS 08/26 10:25 Order name: Phosphorus EDMS 08/26 10:25 Order name: CBC with Automated Diff [facility] 08/26 10:25 Order name: CBC with Automated Diff [facility] 08/26 06:14 Order name: IV Saline Lock; Complete Time: 06:59 [facility] 08/26 06:14 Order name: Labs collected and sent; Complete Time: 06:59 [facility] 05/08 06:14 Order name: Urine Dipstick-Ancillary (obtain specimen); Complete Time: 10:29 [facility] 08/26 06:14 Order name: EKG - Nurse/Tech; Complete Time: 06:18 [facility] 08/26 06:28 Order name: Labs - recollect needed: recollect T\\T\\S not enough blood in tube. danny; mw2 Complete Time: 06:42 08/26 07:04 Order name: CT Abd/Pelvis - IV Contrast Only [facility] 08/26 08:39 Order name: EKG; Complete Time: 08:39 sv 08/26 09:31 Order name: Varma; Complete Time: 10:03 eric 08/26 10:25 Order name: CONS Physician Consult EDMS 08/26 10:25 Order name: NPO EDMS Administered Medications: 06:20 Drug: NS 0.9% 1000 ml Route: IV; Rate: 1000 ml; Site: left antecubital; 06:28 Drug: ProTONIX (pantoprazole) 80 mg Route: IVP; Site: left antecubital; 07:04 Follow up: Response: No adverse reaction ea 06:35 Drug: ProTONIX (pantoprazole) 8 mg/hr Route: IV; Rate: 25 ml/hr; Site: left antecubital;ea 11:30 Follow up: Response: No adverse reaction; IV Status: Order to discontinue infusion; IV em Intake: 50ml 06:50 Drug: Rocephin (cefTRIAXone) 1 grams Route: IV; Rate: per protocol; Site: right hand; 08:00 Follow up: Response: No adverse reaction; IV Status: Completed infusion; IV Intake: 10mlem 06:57 Drug: Flagyl (metroNIDAZOLE) 500 mg Volume: 100 ml; Route: IVPB; Rate: 200 ml/hr; Infused Over: 30 mins; Site: right hand; 08:00 Follow up: Response: No adverse reaction; IV Status: Completed infusion; IV Intake: em 100ml 07:03 Drug: Tylenol 650 mg Route: PO; ea 07:04 Follow up: Response: No adverse reaction ea 07:06 Drug: morphine 2 mg Route: IVP; Site: left antecubital; ea 08:36 Follow up: Response: No adverse reaction; Marked relief of symptoms; Pain is decreased em 07:07 Drug: Zofran (Ondansetron) 4 mg Route: IVP; Site: left antecubital; ea 08:00 Follow up: Response: No adverse reaction em 07:51 Drug: NS 0.9% 1000 ml Route: IV; Rate: 1 bolus; Site: right forearm; em 09:00 Follow up: IV Status: Completed infusion; IV Intake: 1000ml em 09:00 Drug: Cipro (ciprofloxacin) 400 mg Volume: 200 ml; Route: IVPB; Infused Over: 60 mins; em Site: left antecubital; 10:30 Follow up: IV Status: Completed infusion; IV Intake: 100ml em 09:00 Drug: NS 0.9% 1000 ml Route: IV; Rate: 1 bolus; Site: left antecubital; em 11:00 Follow up: IV Status: Completed infusion; IV Intake: 1000ml em 09:00 Drug: NS 0.9% with KCl 20 mEq/L 1000 ml Route: IV; Rate: 125 ml/hr; Site: left em antecubital; 12:56 Follow up: IV Status: Infusion continued upon admission em 09:14 Not Given (Physician Discretion): NS 0.9% 1000 ml IV at 125 ml/hr continuous em 10:02 Drug: morphine 2 mg Route: IVP; Site: left antecubital; em 11:00 Follow up: Response: No adverse reaction em 10:17 Drug: Zosyn (piperacillin-tazobactam) 3.375 grams Route: IVPB; Infused Over: 60 mins; em Site: left antecubital; 11:14 Follow up: IV Status: Completed infusion ss 11:14 Drug: Tylenol Suppository 650 mg Route: DE; ss 12:56 Follow up: Response: No adverse reaction em 11:14 Drug: Tylenol Suppository 650 mg Route: DE; ss 12:56 Follow up: Response: No adverse reaction em 11:17 Drug: NS 0.9% 1000 ml Route: IV; Rate: 1 bolus; Site: right forearm; em 12:55 Follow up: IV Status: Completed infusion; IV Intake: 1000ml em Disposition: 08/26/20 09:36 Hospitalization ordered by Alena Franks for Inpatient Admission. Preliminary diagnosis are Gastrointestinal hemorrhage, unspecified, Fever, unspecified, Perforation of intestine (nontraumatic) - rectosigmoid colon,moderate pneumoperitoneum, Bandemia, Hypokalemia, Multiple sclerosis, Paraplegia. - Bed requested for [facility] ER HOLD. - Status is Inpatient Admission. em - Condition is Serious. - Problem is new. - Symptoms have improved. Signatures: Dispatcher [employer] EDTeodoro Fry MD MD cha Munoz, Edgar, RN RN Jessica Montemayor RN Elyse Ji RN RN ss Kristal Chinchilla RN RN ea Habalo, Winsy, RN RN Cricket [facility] Carol Meek Maurice, MD MD 7 Corrections: (The following items were deleted from the chart) 08:52 08:50 08/26/2020 08:50 Transfer ordered to Other Acute Care Facility. Diagnosis is eric Gastrointestinal hemorrhage, unspecified - lower; Fever, unspecified; Multiple sclerosis; Hypokalemia. Reason for transfer: Higher level of care. Accepting physician is to [facility]. Condition is Fair. Problem is new. Symptoms have improved. [facility] 09:08 08:18 CORONAVIRUS+MR.LAB.ANAYELI ordered. [facility] 09:20 08:52 08/26/2020 08:50 Transfer ordered to Other Acute Care Facility. Diagnosis is eb Gastrointestinal hemorrhage, unspecified - lower; Fever, unspecified; Multiple sclerosis; Hypokalemia; Paraplegia. Reason for transfer: Higher level of care. Accepting physician is to [facility]. Condition is Fair. Problem is new. Symptoms have improved. eric 09:29 09:20 08/26/2020 08:50 Transfer ordered to Other Acute Care Facility. Diagnosis is eric Gastrointestinal hemorrhage, unspecified - lower; Fever, unspecified; Multiple sclerosis; Hypokalemia; Paraplegia. Reason for transfer: Higher level of care. Accepting physician is to [facility]. Dr. Faith. Condition is Fair. Problem is new. Symptoms have improved. eb 13:39 09:36 Hospitalization Ordered by Alena Franks MD for Inpatient Admission. Preliminary ss diagnosis is Gastrointestinal hemorrhage, unspecified; Fever, unspecified; Perforation of intestine (nontraumatic) - rectosigmoid colon,moderate pneumoperitoneum; Bandemia; Hypokalemia; Multiple sclerosis; Paraplegia. Bed requested for Telemetry/MedSurg (Inpatient). Status is Inpatient Admission. Condition is Serious. Problem is new. Symptoms have improved. eric 16:47 13:39 08/26/2020 09:36 Hospitalization Ordered by Alena Franks MD for Inpatient em Admission. Preliminary diagnosis is Gastrointestinal hemorrhage, unspecified; Fever, unspecified; Perforation of intestine (nontraumatic) - rectosigmoid colon,moderate pneumoperitoneum; Bandemia; Hypokalemia; Multiple sclerosis; Paraplegia. Bed requested for [facility] ER HOLD. Status is Inpatient Admission. Condition is Serious. Problem is new. Symptoms have improved. ss
[2020-08-26] MEDS ORDERED: CIPROFLOXACIN 400mg IV 400 MG/200 ML BAG IV ONE (08:54)
[2020-08-26] MEDS ORDERED: KCL 20 MEQ/100 mL IVPB 20 MEQ/100 ML BAG IV ONE (09:10)
[2020-08-26] MEDS ORDERED: NS KCL 20MEQ 1,000 ML IV ONE ×2 (09:25→19:42)
--- NOTE | 2020-08-26 09:30 | RAD REPORT ---
EXAM DESCRIPTION: CTAbdomen Pelvis W Contrast - 08/26/2020 9:01 am CLINICAL HISTORY: Abdominal pain. Abd pain;GI bleed COMPARISON: No comparisons TECHNIQUE: Biphasic CT imaging of the abdomen and pelvis was performed with 100 ml non-ionic IV cont rast. All CT scans are performed using dose optimization technique as appropriate and may include automated exposure control or mA/KV adjustment according to patient size. FINDINGS: There is significant pneumoperitoneum. There is suspicion present for perforation of the rectosigmoid colon with fecal material extending ou tside lumen of the sigmoid colon. Cholelithiasis. Evidence acute solid organ finding. No evidence of significant lymphadenopathy. No suspicious bony findings. IMPRESSION: Perforation of the rectosigmoid colon is suspected with moderate pneumoperitoneum. Stool appears to be present external to the lumen of the sigmoid colon within the adjacent fat. Cholelithiasis. Findings discussed with Dr. Sanchez in the ER 9:25am on 08/26/20 by telephone.
--- NOTE | 2020-08-26 09:42 | RAD REPORT ---
EXAM DESCRIPTION: RAD - Chest Single View - 08/26/2020 6:52 am CLINICAL HISTORY: FEVER Chest pain. COMPARISON: No comparisons FINDINGS: Portable technique limits examination quality. The lungs are grossly clear. The heart is normal in size. Suspected pneumoperitoneum.
[2020-08-26] MEDS ORDERED: PIPER/TAZO/NS 3.375gm 3.375 GM/100 ML BAG ONE ×2 (09:55→19:42)
[2020-08-26] MEDS ORDERED: LIDOCAINE VISCOUS 2% SOLN 15 ML UDC ONE (09:55)
[2020-08-26 10:15] LABS: Urine Blood 2+ (Negative); Urine Glucose Negative (Negative); Urine Protein Trace (Negative); Urine Specific Gravity 1.015 (1.005-1.030)
[2020-08-26] MEDS ORDERED: ONDANSETRON 4 MG/2 ML VIAL IV PRN (10:18)
[2020-08-26] MEDS ORDERED: ACETAMINOPHEN 500 MG TAB PO PRN (10:18)
[2020-08-26] MEDS ORDERED: HYDROMORPHONE HCL 1 MG/ML INJ IV PRN (10:24)
[2020-08-26] MEDS ORDERED: NA CHLORIDE 0.9% 1,000 ML IV SCH (11:00)
[2020-08-26] MEDS ORDERED: ACETAMINOPHEN 650MG/RECT SUPP PR ONE (11:29)
[2020-08-26] MEDS ORDERED: dexAMETHasone 4 MG/ML VIAL ONE (13:08)
[2020-08-26] MEDS ORDERED: GLYCOPYRROLATE 0.2 MG/ML SYR ONE ×2 (13:08)
[2020-08-26] MEDS ORDERED: NEOSTIGMINE 1 MG/ML -5 ML ONE (13:08)
[2020-08-26] MEDS ORDERED: MIDAZOLAM HCL 2 MG/2 ML INJ ONE (13:08)
[2020-08-26] MEDS ORDERED: FENTANYL CITR 100 MCG/2 ML ONE ×2 (13:08→14:19)
[2020-08-26] MEDS ORDERED: ROCURONIUM 50 MG/5 ML VIAL IV ONE ×2 (13:09→14:06)
[2020-08-26] MEDS ORDERED: KETOROLAC 30 MG/ML INJ ONE (13:09)
[2020-08-26] MEDS ORDERED: propofoL 200 MG/20 ML VIAL IV ONE (13:10)
[2020-08-26] MEDS ORDERED: LIDOCAINE 2% MPF 5 ML VIAL ONE (13:10)
[2020-08-26] MEDS ORDERED: Ringers Lactate 1,000 ML IV ONE ×2 (13:16→15:39)
--- NOTE | 2020-08-26 13:18 | P.CNS ---
Date of Consult: 08/26/20 PC: 54-year-old male was brought in from a custodial complaining of severe abdominal pain for diagnosis and treatment. HPC: Patient states he has felt on well for the last 48 hr. Has increasing abdominal pain PMH: Cerebral palsy PSHx: Surgeries on his back in the past denies any abdominal procedures SOC: Denies any allergies SYS REVIEW: No cough, wheeze, shortness of breath. No chest pain or palpitations. Says he has been a relatively good health until recently. Good appetite, but is all was trouble with bowel movements. O/E awake alert oriented at the moment vital signs are stable HEENT: Anicteric Chest: Chest movement equal bilaterally ABD: Patient's head is mildly distended but he is tender in the lower portion of the abdomen especially LOCO: NAD DATA: CT scans shows free air in the peritoneal cavity with possible fecal contamination in the pelvis. White cell count normal, hemoglobin hematocrit are stable low platelet count IMPRESSION: Perforated bowel PLAN: I will take him to the operating room for exploratory laparotomy. It is most likely we will have to a colostomy. The risks of this procedure have been discussed with the patient. The possibility of bleeding, infection, injury to bowel blood vessels have been described. The possible need for further surgeries and procedures was discussed. Abscess formation extension were outlined. He understands and wants to proceed. He has difficulty with his vision, but has given us verbal consent.
[2020-08-26] MEDS ORDERED: ALBUMIN HUM 5% 250 ML IV ONE ×2 (13:45→14:58)
[2020-08-26] MEDS ORDERED: METRONIDAZOLE 500mg IVPB 500 MG/100 ML BAG IV SCH (14:00)
[2020-08-26] MEDS: Ringers Lactate 1,000 ML IV ONE ×2 (14:24→14:27)
--- NOTE | 2020-08-26 15:55 | P.OP ---
Preoperative diagnosis: Perforated colon Postoperative diagnosis: Perforated rectosigmoid colon Primary procedure: Exploratory laparotomy Secondary procedure: Sigmoid resection Other procedure(s): End colostomy Anesthesia: General Estimated blood loss: Less than 30 cc Specimen: Sigmoid colon, rectosigmoid colon, sigmoid colon Operative Technique: The patient brought the operating room and placed supine on the table. After the induction of adequate general endotracheal anesthesia, the area of the abdomen was prepped with a DuraPrep solution, and he was draped in usual aseptic manner. A generous midline incision was made. This was brought down through the skin and subcutaneous tissue. The fascia in the upper abdomen was divided down to the peritoneum. After elevating it between 2 hemostats were able to enter the peritoneal cavity an open knee wound for the full length of our incision. At this point, we could see there was some bossman blood in the peritoneal cavity. This was aspirated and only amounted to 10 cc. On the small bowel was then run. This went from the ligament Treitz down to the ileocecal valve. This all appeared to be normal. The descending colon was now traced. At the area of the sigmoid colon just above the true pelvis itself we could see that there was air underneath the serosal surface. Tracing this down into the pelvis there was an area on the right anterior portion of the sigmoid just at its junction with the rectum that appeared to be a large hematoma with obvious opening leaking old blood from this area. The hole was quickly controlled using some Allis clamps. There was however some spillage in this area. The attention was turned out towards the sigmoid colon. It was resected from our point of division above the air in the serosa up. This was taken down staying on the midline The rectosigmoid junction was identified. We were able to stay just above this and were finally able to get a contour were Stapler around this. We fired it. However we had almost like a longitudinal tear in the bowel in this area. It was controlled by grasping it with 2 Allis clamps and Re firing the contour were. At this point the pathology had been dealt with. The pelvis was irrigated with a saline solution. Attention was turned back up towards our intended colostomy. We had a lot of redundant length on this por resected. At this point the pelvis was inspected to ensure adequate hemostasis pouch posterior to the rectum. This was brought out through a separate stab wound incision in the right lower quadrant. Our markings were now made on the skin in the left lower quadrant for colostomy side. A [place] of skin was removed as well as a plug of subcutaneous tissue. A cruciate incision was made just over the muscles lateral to the rectus muscle there. This was opened using a hemostat culture and following the bowel was grasped with an Allis clamp and it was delivered up to form our colostomy. We checked it to ensure there were no twists. And that we had enough colon to meets without tension. This having mean down the small bowel was once again run from the ligament Treitz down to the ileocecal valve. It was were torn returned to the peritoneal cavity. The omentum and the colon were now laid over the small bowel. At this point the instrument and sponge count were reported as correct. The midline incision was closed with 2 running sutures of 0 loop nylon 1 started from the top and 1 from the bottom. They were tied at the emboli kiss. The skin was now loosely approximated with zuri. Attention was now turned towards the left lower quadrant. This portion of the colon that we had brought out showed excellent blood flow and viability. Grasping an Allis clamp we placed the pursestring device over the end of the bowel. It was fired and the redone in 2 she amputated. The number 32 anvil was now placed into the distal end of the bowel. The pursestring was tightened. It was now buried in the subcutaneous tissue and a pursestring device on the skin was tied. Using the EEA we now constructed AE end-colostomy. At this point the appliance was placed over the bowel. Having placed a finger into the bowel we ensure that there was good continuity and no twisting at the exit site from the peritoneal cavity. At this point iodoform gauze is placed between the zuri in the midline incision and a sterile dressing was applied. He was stable when sent to the recovery room. Needle sponge instrument count were correct. 1 JAILENE drain had been placed in the pelvis. Estimated blood loss approximately 30 cc. Complications: None Drain(s): JAILENE drain Transferred to: Recovery Room Condition: Good
[2020-08-26] MEDS ORDERED: MORPHINE 4 MG/ML SYR IV PRN (16:19)
[2020-08-26 18:19] LABS: Hematocrit 36.2 % (39.6-49.0)
[2020-08-26 18:34] LABS: Albumin 2.9 g/dL (3.4-5.0); Bilirubin Direct 0.3 mg/dL (0-0.2); Bilirubin Total 0.8 mg/dL (0.2-1.0); Protein, Total 5.5 g/dL (6.4-8.2)
[2020-08-26] MEDS: PIPER/TAZO/NS 3.375gm 3.375 GM/100 ML BAG IVPB SCH (19:27)
[2020-08-26] MEDS: NS KCL 20MEQ 20 MEQ/1,000 ML BAG IV SCH (19:27)
[2020-08-26] MEDS: METRONIDAZOLE 500mg IVPB 500 MG/100 ML BAG IV SCH (20:01)
[2020-08-26] MEDS ORDERED: KCL 20 MEQ/100 mL IVPB 20 MEQ/100 ML BAG IV SCH (21:00)
[2020-08-26 21:27] LABS: MPV 9.8 fL (7.6-11.3)
[2020-08-26] MEDS ORDERED: MORPHINE 2 MG/ML SYR IV ONE (21:30)
[2020-08-26 21:39] LABS: Protime INR 1.53
[2020-08-26] MEDS ORDERED: NA CHLORIDE 0.9% 500 ML IV ONE (22:08)
[2020-08-26 22:28] LABS: Platelet Estimate ADEQ
[2020-08-26 22:34] LABS: Hematocrit 31.1 % (39.6-49.0)
[2020-08-26] MEDS ORDERED: NA CHLORIDE 0.9% 500 ML ONE (22:36)
[2020-08-26] MEDS: MORPHINE 2 MG/ML SYR IV PRN (23:32)
[2020-08-27] MEDS: PIPER/TAZO/NS 3.375gm 3.375 GM/100 ML BAG IVPB SCH ×4 (00:07→17:56)
[2020-08-27] MEDS: METRONIDAZOLE 500mg IVPB 500 MG/100 ML BAG IV SCH ×3 (00:07→16:30)
[2020-08-27] MEDS ORDERED: METRONIDAZOLE 500mg IVPB 500 MG/100 ML BAG IV ONE ×3 (00:22→16:45)
[2020-08-27] MEDS ORDERED: PIPER/TAZO/NS 3.375gm 3.375 GM/100 ML BAG ONE ×5 (00:22→18:14)
[2020-08-27] MEDS ORDERED: LORazepam 2 MG/ML VIAL IV ONE (01:34)
[2020-08-27] MEDS: NS KCL 20MEQ 20 MEQ/1,000 ML BAG IV SCH ×3 (02:00→10:00)
[2020-08-27] MEDS: MORPHINE 2 MG/ML SYR IV PRN ×6 (02:08→22:49)
[2020-08-27] MEDS ORDERED: MORPHINE 2 MG/ML SYR ONE ×7 (02:20→23:01)
[2020-08-27] MEDS ORDERED: NS KCL 20MEQ 1,000 ML IV ONE (05:30)
[2020-08-27] MEDS ORDERED: NA CHLORIDE 0.9% 500 ML IV ONE (05:33)
[2020-08-27 06:35] LABS: Basophils % 0.1 % (0-1.3); Lymphocytes % 6.6 % (15.3-44.8); MPV 10.6 fL (7.6-11.3); RBC Red Blood Cell Count 3.09 M/uL (4.33-5.43)
[2020-08-27 06:40] VITALS: BMI 29.6
[2020-08-27 06:58] LABS: Magnesium 1.6 mg/dL (1.8-2.4)
[2020-08-27 07:13] LABS: Potassium 4.4 mmol/L (3.5-5.1)
[2020-08-27] MEDS ORDERED: Levofloxacin500mg IV 500 MG/100 ML BAG IV SCH (08:00)
[2020-08-27] MEDS ORDERED: MAGNESIUM SULFATE 1 gm IVPB 1 GM/100 ML BAG IV ONE ×2 (08:00→08:59)
[2020-08-27] MEDS ORDERED: ENOXAPARIN 40 MG/0.4 ML SQ SCH (09:00)
[2020-08-27] MEDS ORDERED: NA CHLORIDE 0.9% 250 ML ONE (09:02)
--- NOTE | 2020-08-27 09:56 | P.HP ---
Certification for Inpatient Patient admitted to: Inpatient With expected LOS: >2 Midnights Patient will require the following post-hospital care: None Practitioner: I am a practitioner with admitting privileges, knowledge of patient current condition, hospital course, and medical plan of care. Services: Services provided to patient in accordance with Admission requirements found in Title 42 Section 412.3 of the Code of Federal Regulations Patient History Date of Service: 08/26/20 Reason for admission: Perforated colon History of Present Illness: Patient is a 54-year-old gentleman who came to the hospital with severe abdominal pain. Patient was initially seen in the emergency room, and was found have a perforated colon. Initial temp was to transfer to a tertiary care facility; however, we were unsuccessful so ill we spoke with our general surgeon who came to see the patient and took him to the operating room. Otherwise, patient with very little medical problem. Will plan on monitoring him very closely postoperatively. Possible sepsis and aggressive IV hydration, along with broad-spectrum antibiotic coverage at this time. Allergies No Known Allergies Allergy (Unverified 08/26/20 13:36) - Past Medical/Surgical History -: paraplegia -: CVA -: Hep C -: multiple sclerosis - Family History Father Family History: Reviewed- Non-Contributory - Social History Smoking Status: Unknown if ever smoked Alcohol use: No CD- Drugs: No Place of Residence: Home Review of Systems 10-point ROS is otherwise unremarkable Physical Examination - Vital Signs Temperature: 99.2 F Blood Pressure: 118/81 Pulse: 125 Respirations: 16 Pulse Ox (%): 99 - Physical Exam General: Alert, In no apparent distress, Oriented x3 HEENT: Atraumatic, PERRLA, Mucous membr. moist/pink, EOMI, Sclerae nonicteric Neck: Supple, 2+ carotid pulse no bruit, No LAD, Without JVD or thyroid abnormality Respiratory: Clear to auscultation bilaterally, Normal air movement Cardiovascular: Regular rate/rhythm, Normal S1 S2 Gastrointestinal: Absent bowel sounds, Tenderness, Rebound, Guarding Musculoskeletal: No clubbing, No swelling, No tenderness Integumentary: No rashes Neurological: Normal speech, Normal tone, Sensation intact, Cranial nerves 3-12 intact, Normal affect, Abnormal gait, Abnormal strength Lymphatics: No axilla or inguinal lymphadenopathy - Studies Microbiology Data (last 24 hrs): 05/08/21 07:23 Blood - Blood Anaerobic Blood Culture - Final Assessment & Plan - Problems (Diagnosis) (1) Perforation of colon Current Visit: Yes Status: Acute (2) Multiple sclerosis Current Visit: Yes Status: Acute (3) Hepatitis C Current Visit: Yes Status: Acute - Plan 1. Continue with aggressive IV hydration 2. Continue with IV antibiotics 3. Continue with pain control 4. NPO 5. General surgery consultation appreciated 6. Monitor lab data closely 7. GI and DVT prophylaxis Discharge Plan: Home Plan to discharge in: Greater than 2 days - Advance Directives Does patient have a Living Will: No Does patient have a Durable POA for Healthcare: No - Code Status/Comfort Care Code Status Assessed: Yes Code Status: Full Code Critical Care: Yes Time Spent Managing PTS Care (In Minutes): 45
--- NOTE | 2020-08-27 09:58 | P.PN ---
Subjective Date of Service: 08/27/20 Patient is clinically doing well. Continue with current plan of care at this time. Continue with aggressive antibiotics and IV fluids. Review of Systems 10-point ROS is otherwise unremarkable Physical Examination - Vital Signs Temperature: 99.2 F Blood Pressure: 118/81 Pulse: 125 Respirations: 16 Pulse Ox (%): 99 - Physical Exam General: Alert, In no apparent distress, Oriented x3 Respiratory: Clear to auscultation bilaterally, Normal air movement Cardiovascular: Regular rate/rhythm, Normal S1 S2, No murmurs Gastrointestinal: Normal bowel sounds, Soft and benign, Non-distended, No tenderness Musculoskeletal: No clubbing, No swelling Neurological: Sensation intact, Cranial nerves 3-12 intact, Abnormal strength - Studies Microbiology Data (last 24 hrs): 08/26/20 07:23 Blood - Blood Anaerobic Blood Culture - Final Assessment & Plan - Problems (Diagnosis) (1) Perforation of colon Current Visit: Yes Status: Acute (2) Multiple sclerosis Current Visit: Yes Status: Acute (3) Hepatitis C Current Visit: Yes Status: Acute - Plan Continue with plan of care as mentioned below; possible transfer to medical- surgical floor 1. Continue with aggressive IV hydration; monitor renal function and urine output closely 2. Continue with IV antibiotics 3. Continue with pain control 4. NPO 5. General surgery consultation appreciated 6. Monitor lab data closely 7. GI and DVT prophylaxis Discharge Plan: Home Plan to discharge in: Greater than 2 days - Advance Directives Does patient have a Living Will: No Does patient have a Durable POA for Healthcare: No - Code Status/Comfort Care Code Status: Full Code Critical Care: No Time Spent Managing PTS Care (In Minutes): 45
[2020-08-27 10:41] LABS: Blood Morphology Comment NOT SEEN (NOT SEEN); Platelet Estimate DECR; Platelets, Giant PRESENT
[2020-08-27] MEDS: D5 0.45 NS 1,000 ML IV SCH ×2 (11:17→18:23)
[2020-08-27] MEDS ORDERED: D5 0.45 NS 1,000 ML IV ONE ×2 (11:31→18:39)
--- NOTE | 2020-08-27 12:14 | EKG ---
Test Date: 2020-08-26 Test Time: 06:14:18 Film Historian: TOÑO MEASUREMENT RESULTS: Intervals: Rate: 139 AR: 136 QRSD: 84 QT: 278 QTc: 423 [place]: P: 46 AR: 136 QRS: 56 T: 62 INTERPRETIVE STATEMENTS: Sinus tachycardia Otherwise normal ECG No previous ECG available for comparison Electronically Signed On 08-27-20 12:12:01 CDT by Judah Beth
--- NOTE | 2020-08-27 19:43 | P.PN ---
Date of Service: 08/27/20 S: Patient states he still somewhat uncomfortable, but better than yesterday. O: Vital signs are stable, still tachycardic. Wounds are clean, colostomy appropriate. Minimal drainage through JAILENE drain. A: Last night had a return to the ER ICU to evaluate the patient. He was having a considerable amount of blood coming through his colostomy bag. On closer inspection this was not coming from the lumen of the ostomy, but from a persistent bleeder on the colonic part of his colostomy is located around about the 11 o'clock position. This is consistent with a small diverticulum that is seen adjacent. A whipstitch of chromic was able to easily control this. We had prophylactically type and screen the patient for 2 units of blood, but today his H&H are stable and he will not recall a transfusion at this time. Today, the patient looks much better, is incisions are clean will take him the dressing down tomorrow and remove the iodoform gauze. His pain management seems to be appropriate, will add in 1 Valium p.o. tonight to help the patient sleep and relaxed. P: Continue current therapy, follow H&H, transfer to the floor where and tachycardia resolves.
[2020-08-27] MEDS ORDERED: DIAZEPAM 5 MG TABLET PO ONE (19:44)
[2020-08-27] MEDS ORDERED: HYDROCODONE/APAP 7.5/325 MG TAB PO PRN (19:45)
[2020-08-27] MEDS ORDERED: DIAZEPAM 5 MG TABLET ONE (20:24)
[2020-08-28] MEDS: PIPER/TAZO/NS 3.375gm 3.375 GM/100 ML BAG IVPB SCH ×4 (00:04→17:10)
[2020-08-28] MEDS ORDERED: PIPER/TAZO/NS 3.375gm 3.375 GM/100 ML BAG ONE ×4 (00:15→17:27)
[2020-08-28] MEDS ORDERED: D5 0.45 NS 1,000 ML IV ONE ×2 (00:15→14:40)
[2020-08-28] MEDS: D5 0.45 NS 1,000 ML IV SCH ×3 (01:12→14:22)
[2020-08-28] MEDS ORDERED: METRONIDAZOLE 500mg IVPB 500 MG/100 ML BAG IV ONE ×3 (01:13→16:33)
[2020-08-28] MEDS: METRONIDAZOLE 500mg IVPB 500 MG/100 ML BAG IV SCH ×3 (01:17→16:15)
[2020-08-28] MEDS ORDERED: MORPHINE 2 MG/ML SYR ONE ×2 (04:23→17:43)
[2020-08-28 04:38] LABS: Hematocrit 25.1 % (39.6-49.0); RBC Red Blood Cell Count 2.62 M/uL (4.33-5.43)
[2020-08-28 04:39] LABS: Absolute Lymphocytes (CBC) 1.2 K/uL (0.7-4.9); Basophils % 0.2 % (0-1.3); Lymphocytes % 8.6 % (15.3-44.8); MPV 9.9 fL (7.6-11.3)
[2020-08-28] MEDS: MORPHINE 2 MG/ML SYR IV PRN ×2 (05:00→17:24)
[2020-08-28 06:58] LABS: RBC Red Blood Cell Count 2.78 M/uL (4.33-5.43)
[2020-08-28 07:00] LABS: Protime INR 1.18
[2020-08-28] MEDS ORDERED: MINERAL OIL 30 ML UCUP PO ONE (07:00)
[2020-08-28 07:03] LABS: BUN Blood Urea Nitrogen 18 mg/dL (7-18); Bicarbonate 26 mmol/L (21-32); Glucose Level 102 mg/dL (74-106); Magnesium 2.1 mg/dL (1.8-2.4); Potassium 3.7 mmol/L (3.5-5.1); Sodium Level 142 mmol/L (136-145)
[2020-08-28 07:14] LABS: Thyroid Stimulating Hormone 1.5 uIU/mL (0.360-3.740)
[2020-08-28] MEDS ORDERED: KCL 20 MEQ/100 mL IVPB 20 MEQ/100 ML BAG IV SCH (08:00)
[2020-08-28] MEDS ORDERED: KCL 20 MEQ/100 mL IVPB 20 MEQ/100 ML BAG IV ONE (08:15)
--- NOTE | 2020-08-28 15:10 | P.PN ---
Date of Service: 08/28/20 S: No specific complaints today. Does not have much of an appetite. However not requiring much pain medicine at all. O: Vital signs are stable, the tachycardia appears to be resolving. Adequate urine output. Surgical incisions are clean (midline iodoform gauze has been removed. A: Progressing well P: Continue current therapy, advanced diet as tolerated.
--- NOTE | 2020-08-28 16:02 | P.PN ---
Subjective Date of Service: 08/28/20 Chief Complaint: Perforated colon Subjective: Improving, Doing well Physical Examination - Vital Signs Temperature: 98.4 F Blood Pressure: 132/91 Pulse: 115 Respirations: 21 Pulse Ox (%): 96 - Studies Microbiology Data (last 24 hrs): 08/26/20 10:15 Catheterized Urine [place] Count - Final No growth. 08/26/20 10:15 Catheterized Urine - Final No growth. Assessment & Plan Discharge Plan: Home Plan to discharge in: Greater than 2 days Physician Review Additional Text: Physical Exam: GENERAL: [The patient is a well-developed, well-nourished, in no apparent distress. Alert and oriented x3.] VITAL SIGNS: [Reviewed] NECK: [Supple. No carotid bruits. No lymphadenopathy or thyromegaly.] LUNGS: [Clear to auscultation. No crackles or wheezes are heard.] HEART: [Regular rate and rythem, no appreciable gallops, rubs, murmurs or extra heart sounds] ABDOMEN: Postsurgical changes noted. Overall stable. No significant pain. EXTREMITIES: [Without any cyanosis, clubbing, rash, lesions or peripheral edema.] NEUROLOGIC: [The patient is oriented to person, place and time. Strength and sensation are grossly intact. Face is symmetric.] SKIN: [Normal color, turgor and temperature. No ulcerations or rashes noted.] Impression: Perforated sigmoid status post laparotomy, sigmoid resection and colostomy Multiple sclerosis Hepatitis C Anemia of chronic disease Plan: Perforated sigmoid status post laparotomy, sigmoid resection and colostomy: Continue IV antibiotic therapy, pain control. Will monitor closely. To monitor electrolytes. Electrolyte protocol in place. Will discuss with surgery about plan of care. Anticipate improvement over the next several days. Multiple sclerosis: Overall stable. Monitor closely. Hepatitis C: Stable. Anemia of chronic disease: Postoperative anemia noted. Will monitor closely. Maintain hemoglobin above 7.5. Code Status: [Full Code] DVT prophylaxis: We will discuss with surgery on when to restart DVT prophylaxis. Advanced Care Planning-30 minutes: Plan of care for the patient's discharge was discussed in detail with the patient. We will continue with plan of care. Anticipate improvement over the next several days. Will need to teach on colostomy care. Time Spent Managing Pts Care (In Minutes): 55
[2020-08-28] MEDS: ONDANSETRON 4 MG/2 ML VIAL IV PRN (16:31)
[2020-08-28] MEDS ORDERED: ONDANSETRON 4 MG/2 ML VIAL ONE (16:50)
[2020-08-28] MEDS: ENOXAPARIN 40 MG/0.4 ML SQ SCH (17:10)
[2020-08-28] MEDS ORDERED: ENOXAPARIN 40 MG/0.4 ML SQ ONE (17:27)
[2020-08-28] MEDS ORDERED: DIAZEPAM 5 MG TABLET ONE (20:25)
[2020-08-28] MEDS ORDERED: DIAZEPAM 5 MG TABLET PO ONE (21:00)
[2020-08-29] MEDS: MORPHINE 2 MG/ML SYR IV PRN (00:23)
[2020-08-29] MEDS: PIPER/TAZO/NS 3.375gm 3.375 GM/100 ML BAG IVPB SCH ×5 (00:23→23:17)
[2020-08-29] MEDS: D5 0.45 NS 1,000 ML IV SCH ×2 (00:23→03:00)
[2020-08-29] MEDS: METRONIDAZOLE 500mg IVPB 500 MG/100 ML BAG IV SCH ×3 (00:23→16:29)
[2020-08-29] MEDS ORDERED: MORPHINE 2 MG/ML SYR ONE (00:38)
[2020-08-29] MEDS ORDERED: D5 0.45 NS 1,000 ML IV ONE (00:39)
[2020-08-29] MEDS ORDERED: PIPER/TAZO/NS 3.375gm 3.375 GM/100 ML BAG ONE ×4 (00:39→16:47)
[2020-08-29] MEDS ORDERED: METRONIDAZOLE 500mg IVPB 500 MG/100 ML BAG IV ONE ×4 (00:39→20:31)
[2020-08-29 04:22] LABS: Absolute Lymphocytes (CBC) 1.1 K/uL (0.7-4.9); Basophils % 0.2 % (0-1.3); Hematocrit 22.8 % (39.6-49.0); Lymphocytes % 5.6 % (15.3-44.8); RBC Red Blood Cell Count 2.43 M/uL (4.33-5.43)
[2020-08-29 04:40] LABS: BUN Blood Urea Nitrogen 16 mg/dL (7-18); Bicarbonate 26 mmol/L (21-32); Glucose Level 129 mg/dL (74-106); Magnesium 1.8 mg/dL (1.8-2.4); Potassium 3.4 mmol/L (3.5-5.1); Sodium Level 142 mmol/L (136-145)
--- NOTE | 2020-08-29 07:33 | RAD REPORT ---
EXAM DESCRIPTION: [facility] Single View08/29/2020 6:48 am CLINICAL HISTORY: Cough COMPARISON: August 2020 FINDINGS: Distended stomach elevates the left hemidiaphragm. The lungs appear clear of acute infiltrate. The heart is normal size
[2020-08-29] MEDS ORDERED: MAGNESIUM SULFATE 1 gm IVPB 1 GM/100 ML BAG IV ONE ×2 (07:38→08:18)
[2020-08-29] MEDS ORDERED: KCL 20 MEQ/100 mL IVPB 20 MEQ/100 ML BAG IV ONE ×2 (08:17→10:51)
[2020-08-29] MEDS ORDERED: D5 0.45 NS 1,000 ML IV SCH (08:18)
[2020-08-29] MEDS: KCL 20 MEQ/100 mL IVPB 20 MEQ/100 ML BAG IV SCH ×2 (08:21→10:34)
[2020-08-29] MEDS ORDERED: SODIUM CHLORIDE 0.9% 10ML INJ IV PRN (08:23)
--- NOTE | 2020-08-29 08:30 | P.PN ---
Subjective Date of Service: 08/29/20 Primary Care Provider: unknown Chief Complaint: Perforated colon Subjective: Improving, Doing well Physical Examination - Vital Signs Temperature: 98.8 F Blood Pressure: 89/77 Pulse: 107 Respirations: 20 Pulse Ox (%): 96 - Studies Microbiology Data (last 24 hrs): 08/26/20 10:15 Catheterized Urine [place] Count - Final No growth. 08/26/20 10:15 Catheterized Urine - Final No growth. Assessment & Plan Discharge Plan: Other Plan to discharge in: Greater than 2 days Physician Review Additional Text: Physical Exam: GENERAL: Patient oriented x3. Patient stable. Some cough and phlegm noted. Patient on room air. VITAL SIGNS: [Reviewed] NECK: [Supple. No carotid bruits. No lymphadenopathy or thyromegaly.] LUNGS: [Clear to auscultation. No crackles or wheezes are heard.] HEART: [Regular rate and rythem, no appreciable gallops, rubs, murmurs or extra heart sounds] ABDOMEN: Postsurgical changes noted. Overall stable. No significant pain. Colostomy bag in place. EXTREMITIES: Patient with limited motion due to his MS. NEUROLOGIC: Patient alert. SKIN: [Normal color, turgor and temperature. No ulcerations or rashes noted.] Impression: Perforated sigmoid status post laparotomy, sigmoid resection and colostomy Multiple sclerosis Hepatitis C Anemia of chronic disease GERD Plan: Perforated sigmoid status post laparotomy, sigmoid resection and colostomy: Co ntinue IV antibiotic therapy, pain control. Surgery has advance diet to regular. Will decrease IV fluids tp 100 cc/h. Hemoglobin has dropped. This may be delusional. We will recheck hemoglobin hematocrit around noon time. Maintain hemoglobin above 7.5. Will consider transfusion if required. DVT prophylaxis started. Will have Physical therapy and Occupational Therapy evaluate patient. Will need to consider skilled placement versus rehab. Encourage incentive spirometer. Chest x-ray shows no pneumonia. Will reassess again later this morning. If stable will transfer patient to the floor. Social work consulted to consider SNF versus rehab at discharge. Case discussed with surgery yesterday. Patient overall improved. Patient will need to be taught colostomy care along with family. Anticipate continued improvement over the next several days. Multiple sclerosis: Overall stable. Monitor closely. Hepatitis C: Stable. Anemia of chronic disease: Postoperative anemia noted. We will recheck hemoglobin and hematocrit around noon time. Maintain hemoglobin above 7.5. Will consider transfusion if hemoglobin below 7.5. No evidence of bleeding. Suspect this may be dilutional. GERD: We will start Protonix Code Status: [Full Code] DVT prophylaxis: Patient now on Lovenox for DVT prophylaxis Advanced Care Planning-30 minutes: Plan of care for the patient's discharge was discussed in detail with the patient. Patient agreeable for inpatient rehab versus skilled placement. We will have social work help with this. Time Spent Managing Pts Care (In Minutes): 55
[2020-08-29] MEDS: ENOXAPARIN 40 MG/0.4 ML SQ SCH (08:42)
[2020-08-29] MEDS: PANTOPRAZOLE 40 MG INJ IVP SCH (08:42)
[2020-08-29] MEDS ORDERED: PANTOPRAZOLE 40 MG INJ ONE (09:00)
[2020-08-29] MEDS ORDERED: ENOXAPARIN 40 MG/0.4 ML SQ ONE (09:00)
[2020-08-29 12:59] LABS: Hematocrit 22.7 % (39.6-49.0)
--- NOTE | 2020-08-29 15:10 | P.PN ---
Date of Service: 08/29/20 S: Patient has no specific complaints. Was resting quietly in his bed. O: Vital signs are stable, adequate blood pressure, heart rate now around 110. Hemoglobin appears to have stabilized. A : Stable status post resection of ischemic bowel. P: I discussed the pathological findings with our pathologist. She feels this is mostly ischemic event. No tumors were seen in the area. He does have mild diverticuli scattered throughout the specimens. Clinically the patient has improved markedly. Still has postoperative ileus. H e is tolerating oral intake. I will give some mineral today. We will also allow him sleeping tablet tonight. Anticipate discharge in next 24-48 hr.
[2020-08-29] MEDS ORDERED: MINERAL OIL 30 ML UCUP PO ONE (16:00)
[2020-08-29] MEDS ORDERED: DIAZEPAM 5 MG TABLET ONE (20:30)
[2020-08-29] MEDS ORDERED: HYDROCODONE/APAP 7.5/325 MG TAB ONE (20:30)
[2020-08-29] MEDS ORDERED: PIPER/TAZO/NS 3.375gm 6.750 GM/200 ML BAG ONE (20:31)
[2020-08-29] MEDS ORDERED: NA CHLORIDE 0.9% 250 ML ONE ×2 (20:33→23:38)
[2020-08-29] MEDS: ENSURE HIGH PROTEIN 237 ML CAN PO SCH (20:59)
[2020-08-29] MEDS ORDERED: DIAZEPAM 5 MG TABLET PO ONE (21:00)
[2020-08-29] MEDS: ONDANSETRON 4 MG/2 ML VIAL IV PRN (21:12)
[2020-08-29] MEDS ORDERED: ONDANSETRON 4 MG/2 ML VIAL ONE (21:31)
[2020-08-30] MEDS: METRONIDAZOLE 500mg IVPB 500 MG/100 ML BAG IV SCH ×3 (00:01→17:40)
[2020-08-30] MEDS ORDERED: FUROSEMIDE 20 MG/ 2ML VIAL IV ONE (05:00)
[2020-08-30] MEDS: PIPER/TAZO/NS 3.375gm 3.375 GM/100 ML BAG IVPB SCH ×3 (05:01→17:40)
[2020-08-30] MEDS: ONDANSETRON 4 MG/2 ML VIAL IV PRN (05:08)
[2020-08-30 05:55] LABS: Absolute Lymphocytes (CBC) 1.1 K/uL (0.7-4.9); Basophils % 0.4 % (0-1.3); Hematocrit 26.9 % (39.6-49.0); Lymphocytes % 9.7 % (15.3-44.8); MPV 9.3 fL (7.6-11.3)
[2020-08-30 06:25] LABS: BUN Blood Urea Nitrogen 11 mg/dL (7-18); Bicarbonate 27 mmol/L (21-32); Glucose Level 86 mg/dL (74-106); Magnesium 1.9 mg/dL (1.8-2.4); Phosphorus 1.4 mg/dL (2.5-4.9); Sodium Level 143 mmol/L (136-145)
[2020-08-30 07:37] LABS: Blood Morphology Comment NOT SEEN (NOT SEEN); Platelet Estimate ADEQ; Polychromasia 1+
[2020-08-30] MEDS ORDERED: POTASSIUM PHOS 30 MM in NA CHLORIDE 0.9% 500 ML IV ONE (09:00)
[2020-08-30] MEDS: ENOXAPARIN 40 MG/0.4 ML SQ SCH (09:00)
[2020-08-30] MEDS: PANTOPRAZOLE 40 MG INJ IVP SCH (09:28)
[2020-08-30] MEDS: ENSURE HIGH PROTEIN 237 ML CAN PO SCH ×3 (09:29→20:45)
--- NOTE | 2020-08-30 10:20 | P.PN ---
Subjective Date of Service: 08/30/20 Primary Care Provider: unknown Chief Complaint: Perforated colon Subjective: Improving, Doing well Physical Examination - Vital Signs Temperature: 98.8 F Blood Pressure: 172/93 Pulse: 99 Respirations: 22 Pulse Ox (%): 98 Assessment & Plan Discharge Plan: Custodial Plan to discharge in: 48 Hours Physician Review Additional Text: Physical Exam: GENERAL: Patient oriented x3. Patient stable. Some cough and phlegm noted. Patient on room air. VITAL SIGNS: [Reviewed] NECK: [Supple. No carotid bruits. No lymphadenopathy or thyromegaly.] LUNGS: [Clear to auscultation. No crackles or wheezes are heard.] HEART: [Regular rate and rythem, no appreciable gallops, rubs, murmurs or extra heart sounds] ABDOMEN: Postsurgical changes noted. Overall stable. No significant pain. Colostomy bag in place. EXTREMITIES: Patient with limited motion due to his MS. NEUROLOGIC: Patient alert. SKIN: [Normal color, turgor and temperature. No ulcerations or rashes noted.] Impression: Perforated sigmoid status post laparotomy, sigmoid resection and colostomy secondary to ischemic bowel with postop ileus Multiple sclerosis Hepatitis C Anemia of chronic disease GERD Elevated blood pressure Plan: Perforated sigmoid status post laparotomy, sigmoid resection and colostomy secondary to ischemic bowel with postop ileus: Patient is passing stool and gas to the colostomy. We will teach on colostomy bag. Continue IV tabetic therapy. Patient tolerating diet. Surgery has advance diet. Encourage physical therapy. Hemoglobin was low yesterday. Transfusion given. Patient overall stable. Continue DVT prophylaxis. Anticipate continued improvement. Continue physical therapy and occupational therapy. Continue incentive spirometer. Patient will return back to the [facility] at discharge. Will discuss with surgery on when this can be done. Anticipate likely tomorrow if okay with surgery. Multiple sclerosis: Overall stable. Monitor closely. Hepatitis C: Stable. Anemia of chronic disease: Postoperative anemia noted. Patient given transfusion of blood. Overall stable GERD: We will start Protonix Elevated blood pressure: Will monitor blood pressure closely. If blood pressure remains elevated will start medication. Will provide IV p.r.n. medication for now Code Status: [Full Code] DVT prophylaxis: Patient now on Lovenox for DVT prophylaxis Advanced Care Planning-30 minutes: Patient will return back to the [facility] at discharge. Time Spent Managing Pts Care (In Minutes): 55
--- NOTE | 2020-08-30 14:35 | P.PN ---
Date of Service: 08/30/20 S: Patient in good spirits today, feels well. O: Vital signs are stable, incisions clean A : Stable status post resection of ischemic bowel. P: Patient continues to improve, colostomy starting to work. Patient would probably be better to return to the [facility] until his colostomy routine has been established. May need home health for that. Continue current therapy. Advanced diet as tolerated.
[2020-08-30] MEDS ORDERED: HYDRALAZINE HCL 20 MG/ML VIAL IV PRN (15:08)
[2020-08-31] MEDS: METRONIDAZOLE 500mg IVPB 500 MG/100 ML BAG IV SCH ×2 (00:27→08:34)
[2020-08-31] MEDS: PIPER/TAZO/NS 3.375gm 3.375 GM/100 ML BAG IVPB SCH ×3 (00:27→13:37)
[2020-08-31] MEDS ORDERED: MELATONIN 5 MG TABLET PO PRN (00:33)
[2020-08-31] MEDS: MORPHINE 2 MG/ML SYR IV PRN (00:38)
[2020-08-31 04:28] LABS: Absolute Lymphocytes (CBC) 1.4 K/uL (0.7-4.9); Basophils % 0.3 % (0-1.3); Hematocrit 25.4 % (39.6-49.0); Lymphocytes % 14.3 % (15.3-44.8); MPV 9.5 fL (7.6-11.3)
[2020-08-31 04:47] LABS: BUN Blood Urea Nitrogen 12 mg/dL (7-18); Bicarbonate 24 mmol/L (21-32); Glucose Level 74 mg/dL (74-106); Sodium Level 141 mmol/L (136-145)
[2020-08-31 04:49] LABS: Potassium 2.9 mmol/L (3.5-5.1)
[2020-08-31] MEDS: KCL 20 MEQ/100 mL IVPB 20 MEQ/100 ML BAG IV SCH ×3 (05:34→10:09)
[2020-08-31] MEDS ORDERED: NA CHLORIDE 0.9% 500 ML ONE (05:48)
[2020-08-31] MEDS ORDERED: MAGNESIUM HYDROXIDE 8% 30 ML PO PRN (05:56)
[2020-08-31] MEDS: METOPROLOL TAR 25 MG TAB PO SCH ×2 (07:33→16:58)
[2020-08-31] MEDS: PANTOPRAZOLE 40 MG INJ IVP SCH (08:35)
[2020-08-31] MEDS: ENOXAPARIN 40 MG/0.4 ML SQ SCH (08:35)
[2020-08-31] MEDS: ENSURE HIGH PROTEIN 237 ML CAN PO SCH ×2 (08:36→14:00)
[2020-08-31] MEDS ORDERED: DOCUSATE NA 100 MG CAP PO SCH (09:00)
[2020-08-31] MEDS ORDERED: DULOXETINE 20 MG CAP PO SCH (09:00)
[2020-08-31] MEDS ORDERED: VITAMIN D 1000 UNIT TAB PO SCH (09:00)
--- NOTE | 2020-08-31 12:33 | P.DS ---
Admission Date: 08/26/20 Discharge Date: 08/31/20 Primary Care Provider: longterm Disposition: TRANSFER TO [facility] Discharge Condition: GOOD Reason for Admission: Perforated colon Consultations: Surgery-Dr. Pascal Procedures: COVID: Negative CT scan: COMPARISON: No comparisons TECHNIQUE: Biphasic CT imaging of the abdomen and pelvis was performed with 100 ml non-ionic IV contrast. All CT scans are performed using dose optimization technique as appropriate and may include automated exposure control or mA/KV adjustment according to patient size. FINDINGS: There is significant pneumoperitoneum. There is suspicion present for perforation of the rectosigmoid colon with fecal material extending outside lumen of the sigmoid colon. Cholelithiasis. Evidence acute solid organ finding. No evidence of significant lymphadenopathy. No suspicious bony findings. IMPRESSION: Perforation of the rectosigmoid colon is suspected with moderate pneumoperitoneum. Stool appears to be present external to the lumen of the sigmoid colon within the adjacent fat. Cholelithiasis. Surgery: Date: 08/26/20 15:48 Preoperative diagnosis: Perforated colon Postoperative diagnosis: Perforated rectosigmoid colon Primary procedure: Exploratory laparotomy Secondary procedure: Sigmoid resection Other procedure(s): End colostomy Anesthesia: General Estimated blood loss: Less than 30 cc Specimen: Sigmoid colon, rectosigmoid colon, sigmoid colon Pathology: TISSUES A. SIGMOID COLON B. SIGMOID COLON - RECTOSIGMOID JUNCTION C. SIGMOID COLON - PORTION OF SIGMOID COLON DIAGNOSIS Sigmoid colon, segmental resection: - Ischemic changes with severe acute serositis compatible with perforation - Surgical margins viable - No malignancy identified Rectosigmoid junction, segmental resection: - Ischemic changes - Surgical margins mostly viable - No malignancy identified Portion of sigmoid colon, excision: - Acute serositis - No malignancy identified CPT 91906 x3 Dictated by: Lynsey Bran MD Medical Problem List: Perforated sigmoid status post laparotomy, sigmoid resection and colostomy secondary to ischemic bowel with postop ileus Multiple sclerosis Hepatitis C Anemia of chronic disease GERD Elevated blood pressure now hypertension Depression with anxiety Brief History of Present Illness: 54-year-old gentleman who came to the hospital with severe abdominal pain. Patient was initially seen in the emergency room and was found have a perforated colon. Patient was initially evaluated for possible transfer however this was unsuccessful. General surgery proceeded to take the patient for emergent surgery. Hospital Course: Patient presented with abdominal pain secondary to perforated sigmoid colon. Patient had laparotomy, sigmoid resection and colostomy. Pathology showed ischemic bowel. Patient had postop ileus. The patient improved during the course of his stay. Patient now able to tolerate diet. JAILENE tube removed. Patient remains with colostomy with good output. At discharge the patient will return back to the group home to continue colostomy care. Patient will continue with current diet. At discharge patient will continue with multivitamin daily and folic acid daily. Other vitamin supplementation includes vitamin D3 1000 mg daily. Patient may also continue with docusate 200 mg daily and milk of mag as needed for constipation. Patient may continue with physical therapy as well. Surgery will follow up with the patient at the group home next week to continue his care. Patient with multiple sclerosis. This appears stable. Patient will continue with folic acid daily. She may continue with physical therapy at the group home. Fall precaution in place. Patient is mainly bedbound. Patient with hepatitis C. This also remained stable. Patient with anemia chronic disease. Patient received transfusion of blood. This appears stable. Patient will continue with folic acid 1 mg daily and multivitamin with iron daily. Recommend to monitor CBC within 1 to 2 weeks to monitor his progress. Patient with underlying GERD. At discharge patient may continue with Protonix 40 mg daily. Patient found to have elevated blood pressure. Hypertension identified. At discharge patient will continue with metoprolol 25 mg 1 pill twice daily. Recommend to maintain blood pressure less than 130/80. If blood pressure remains elevated greater than 140/90 then further adjustment in his medication can be considered. This can be done at the group home. Patient with depression anxiety. Patient will resume home medications of Cymbalta 60 mg daily, melatonin 5 mg at bedtime, and mirtazapine 30 mg at bedtime. Vital Signs/Physical Exam: Temp Pulse Resp BP Pulse Ox 97.7 F 109 H 20 176/94 H 98 08/31/20 08:00 08/31/20 08:00 08/31/20 08:00 08/31/20 08:00 08/31/20 08:00 General: Alert, In no apparent distress, Oriented x3, Cooperative HEENT: Atraumatic Neck: Supple Respiratory: Clear to auscultation bilaterally, Normal air movement Cardiovascular: Normal pulses, Regular rate/rhythm Gastrointestinal: Other (Postop changes noted to the abdomen. Colostomy in place.) Integumentary: No tenderness/swelling Neurological: Other (Patient is mainly bedbound) Laboratory Data at Discharge: WBC 9.60 K/uL (4.3-10.9) D 08/31/20 03:22 Hgb 8.5 g/dL (13.6-17.9) L 08/31/20 03:22 Hct 25.4 % (39.6-49.0) L 08/31/20 03:22 Plt Count 167 K/uL (152-406) 08/31/20 03:22 PT 13.6 SECONDS (9.5-12.5) H 08/28/20 06:20 INR 1.18 08/28/20 06:20 APTT 36.9 SECONDS (24.3-36.9) 08/28/20 06:20 Sodium 141 mmol/L (136-145) 08/31/20 03:22 Potassium 2.9 mmol/L (3.5-5.1) L* 08/31/20 03:22 BUN 12 mg/dL (7-18) 08/31/20 03:22 Creatinine 0.42 mg/dL (0.55-1.3) L 08/31/20 03:22 Glucose 74 mg/dL (74-106) 08/31/20 03:22 Phosphorus 3.0 mg/dL (2.5-4.9) D 08/31/20 03:22 Magnesium 1.9 mg/dL (1.8-2.4) 08/30/20 05:33 Total Bilirubin 0.8 mg/dL (0.2-1.0) 08/26/20 18:07 AST 10 U/L (15-37) L 08/26/20 18:07 ALT 23 U/L (12-78) 08/26/20 18:07 Alkaline Phosphatase 54 U/L (45-117) 08/26/20 18:07 Lipase 50 U/L (73-393) L 08/26/20 06:19 Home Medications: Cholecalciferol (Vitamin D3) [Vitamin D3] 1,000 unit PO DAILY 08/30/20 Docusate [Colace Cap*] 200 mg PO DAILY 08/30/20 Duloxetine [Cymbalta *] 60 mg PO DAILY 08/30/20 Mag Hydroxide 8% [Milk Of Magnesia*] 30 ml PO DAILY PRN 08/30/20 Melatonin/Pyridoxine [Melatonin 5 mg Tablet] 5 mg PO BEDTIME 08/30/20 Mirtazapine [Remeron] 30 mg PO BEDTIME 08/30/20 Folic Acid 1 mg PO DAILY #90 tablet 08/31/20 Metoprolol Tartrate [Lopressor*] 25 mg PO BID 6AM 6PM #60 tab 08/31/20 Multivitamin with Iron [Daily Vitamin + Iron] 1 each PO DAILY #90 tablet 08/31/20 Pantoprazole [Protonix Tab] 40 mg PO DAILY #30 tab 08/31/20 New Medications: Multivitamin with Iron [Daily Vitamin + Iron] 1 each PO DAILY #90 tablet Folic Acid 1 mg PO DAILY #90 tablet Metoprolol Tartrate [Lopressor*] 25 mg PO BID 6AM 6PM #60 tab Pantoprazole [Protonix Tab] 40 mg PO DAILY #30 tab Physician Discharge Instructions: Patient presented with abdominal pain secondary to perforated sigmoid colon. Patient had laparotomy, sigmoid resection and colostomy. Pathology showed ischemic bowel. Patient had postop ileus. The patient improved during the course of his stay. Patient now able to tolerate diet. JAILENE tube removed. Patient remains with colostomy with good output. At discharge the patient will return back to the group home to continue colostomy care. Patient will continue with current diet. At discharge patient will continue with multivitamin daily and folic acid daily. Other vitamin supplementation includes vitamin D3 1000 mg daily. Patient may also continue with docusate 200 mg daily and milk of mag as needed for constipation. Patient may continue with physical therapy as well. Surgery will follow up with the patient at the group home next week to continue his care. Patient with multiple sclerosis. This appears stable. Patient will continue with folic acid daily. She may continue with physical therapy at the group home. Fall precaution in place. Patient is mainly bedbound. Patient with hepatitis C. This also remained stable. Patient with anemia chronic disease. Patient received transfusion of blood. This appears stable. Patient will continue with folic acid 1 mg daily and multivitamin with iron daily. Recommend to monitor CBC within 1 to 2 weeks to monitor his progress. Patient with underlying GERD. At discharge patient may continue with Protonix 40 mg daily. Patient found to have elevated blood pressure. Hypertension identified. At discharge patient will continue with metoprolol 25 mg 1 pill twice daily. Recommend to maintain blood pressure less than 130/80. If blood pressure remains elevated greater than 140/90 then further adjustment in his medication can be considered. This can be done at the group home. Patient with depression anxiety. Patient will resume home medications of Cymbalta 60 mg daily, melatonin 5 mg at bedtime, and mirtazapine 30 mg at bedtime. Diet: Regular Activity: Fall precautions Followup: NONE,NONE [Primary Care Provider] - Time spent managing pt's care (in minutes): 55
[2020-08-31 17:00] VITALS: BP 138/88
[2020-08-31] MEDS ORDERED: POTASSIUM 25 MEQ EFFERV TAB PO ONE (17:00)
[2020-08-31 17:05] VITALS: TEMP 97.9
[2020-08-31 20:43] VITALS: O2SAT 96
[2020-08-31] MEDS ORDERED: MIRTAZAPINE 15 MG TAB PO SCH (21:00)
[2020-08-31] MEDS ORDERED: MELATONIN 5 MG TABLET PO SCH (21:00)
== END 2020-08-31 21:02 | DRG 853 ==
LOC: ER 06:02 → ERHOLD 10:32 → 2ND 08-29 22:36
PROVIDERS: ADMIT Hospitalist; ATTEND Family Medicine
PROC: 0D1N0Z4 Bypass Sigmoid Colon to Cutaneous, Open Approach (ICD-10-PCS; 2020-08-26)
PROC: 0DTN0ZZ Resection of Sigmoid Colon, Open Approach (ICD-10-PCS; principal; 2020-08-26 13:00)
PROC: 30233N1 Transfusion of Nonautologous Red Blood Cells into Peripheral Vein, Percutaneous Approach (ICD-10-PCS; 2020-08-27)
DX: A41.9 Sepsis, unspecified organism (principal); K63.1 Perforation of intestine (nontraumatic); E44.1 Mild protein-calorie malnutrition; K56.7 Ileus, unspecified; K21.9 Gastro-esophageal reflux disease without esophagitis; F41.8 Other specified anxiety disorders; I10 Essential (primary) hypertension; G35 Multiple sclerosis; D63.8 Anemia in other chronic diseases classified elsewhere; B19.20 Unspecified viral hepatitis C without hepatic coma; Z86.73 Personal history of transient ischemic attack (TIA), and cerebral infarction without residual deficits; Z68.29 Body mass index [BMI] 29.0-29.9, adult; Z20.822 Contact with and (suspected) exposure to COVID-19
CPT/HCPCS: 36415; 36430; 51702; 71045; 74177; 80048; 80076; 81003; 83605; 83690; 83735; 83880; 84100; 84132; 84145; 84439; 84443; 84484; 85014; 85018; 85025; 85044; 85049; 85610; 85730; 86850; 86900; 86901; 87040; 87086; 87088; 88307; 93005; 94010; 97112; 97163; 97165; 97530; 99285; C9113; J0696; J0744; J1100; J1650; J1940; J2250; J2270; J2405; J2543; J2704; J2710; J3010; J3475; J3480; J7030; J7040; J7050; J7120; J7799; P9016; P9045; Q9967; U0003

== ENCOUNTER 2020-09-03 11:02 | Emergency (ER) | payer OTHER ==
--- OUTSIDE RECORDS SUMMARY | 2020-09-03 11:06 | XMS REPORT | Continuity of Care Document ---
:[address] [facility] t Address [address] [place] [address] Care Team Providers Name Role Phone Ronnie Taylor Attending Clinician Eliud Taylor Admitting Clinician Problems Condition Condition Condition Status Onset Resolution Last Treating Co mments Source Name Details Category Date Date Treatment Clinician Date WEAKNESS Diagnosis Active 2019-08-14 M emoria 08-13 18:38:00 l WEAKNESS 00:00: Kiel n 00 Active 08/14/2019 [facility] NITHYA Diagnosis Active 2019-08-15 [facility] oria HEMATURIA/ 08-13 13:16:00 l ANEMIA NITHYA 00:00: [place] HEMATURIA/ 00 ANEMIA Active 08/14/2019 [facility], AMS, Diagnosis Active 2019-09-16 [facility] SEPSIS 08-13 13:26:00 l UTI, 00:00: Tai AMS, 00 SEPSIS Active 08/14/2019 [facility] ALTERED Diagnosis Active 2019-09-16 [place] MENTAL 13:26:00 l STATUS, ALTERED Kiel [...] TRACT SPECIF INFECTION, SITE NOT SPECIF Active [facility] Allergies, Adverse Reactions, Alerts Allergy Allergy Status Severity Reaction(s) Onset Inactive Treating Comm ents Source Name Type Date Date Clinician No Known No Known Active Memori a Medicati Medicati l on on Tai Guillen s s Social History Social Habit Start Date Stop Date Quantity Comments Source Sex Assigned At [facility] Social History 2019-06-01 2019-06-01 [facility] 10:40:52 10:40:52 Medications Ordered Filled Start Stop Current Ordering Indication Dosage Frequency Signature Comments Components Source Medication Medication Date Date Medication? Clinician (SIG) Name Name Cefuroxime Yes 500 mg = 1 M emoria 500 MG Oral 08-16 tab, PO, l Tablet 19:20: BID, X 7 Tai [Ceftin] day, # 14 tab, 0 Refill(s), Pharmacy: [facility] [id number] Acetaminoph No Notes: Do M emoria en 08-15 not exceed l 12:59: 4 gm/day. Tai 00 (Same as: Tylenol) normal No 1,000 mL, Memori a saline 0.9% 08-15 Rate: 60 l IV 1,000 mL 12:52: ml/hr, Herm Infuse over: 16.7 hr, Route: IV, Dosing Weight 95.455 kg, Total Volume: 1,000, Start date: 08/16/19 7:52:00 CDT, Duration: 1 day, Stop date: 08/17/19 7:51:00 CDT, 2.16, m2, 0 Famotidine No Notes: Memor ia 20 MG Oral 08-15 (Same as: l Tablet 02:00: Pepcid AC) Marielos nn [Pepcid] Ceftriaxone No Notes: Yves summer 08-14 (Same As: l 21:00: Rocephin). Tai 00 Use with 100 mL NS and infuse over 30 min MEDICATION WASTE Product Size: 1000 mg Product Wasted: ___ mg phenol No Notes: Memoria 08-14 WASTE: F/P l 17:29: - Black; E Tai - [facility] Docusate No Notes: [facility]oria Sodium 100 - (Same as: l MG Oral 17:29: Colace) [place] Capsule (Do Not [Colace] Crush) Hydralazine No Notes: Yves summer - (Same as: l 17:29: Apresoline ) Push over 5 minutes Imodium A-D No Notes: Yves summer 4- (Same as: l 17:29: Imodium) MAX adult dose is 8 caps/day Miralax No Notes: Memoria 4-26 Dissolve l 17:29: in 8 oz of water or juice. (Same as: Miralax) Zyrtec No Notes: Memoria - (Same As: l 17:29: Zyrtec) Acetaminoph No Notes: Yves summer en 325 MG / 08-14 (Same as: l Hydrocodone 17:29: [place] Marielos nn Bitartrate 00 325/5) Do 5 MG Oral not exceed Tablet 4gm/day of [[place] acetaminop 5/325] hen. Tums No Notes: Memoria - (Same As: l 17:29: Tums) Calcium Carbonate 500 mg = 200 mg elemental calcium Dose = mg calcium carbonate ( mg elemental calcium) Zofran No Notes: Memoria - (Same as: l 17:29: Zofran) MEDICATION WASTE Product Size: 4 mg Product Wasted: ___ mg Docusate No Notes: Memoria 4- (Same as: l 14:00: Colace) [place] (Do Not Crush) duloxetine No Notes: Memor ia - (Same as: l 14:00: Cymbalta) (Do Not Crush) Risperidone No Notes: Yves summer -26 (Same as: l 14:00: Risperdal) Hazardous Drug Group 2:Non-anti neoplastic Hazardous Drug -- Refer to safe handling procedure PPE Matrix atorvastati No Notes: Yves summer n - (Same As: l 03:01: Lipitor) DULoxetine 2019-0 Yes 60 mg = 1 Me moria [...] Tai 00 30 tab, 0 Refill(s) sennosides, No Notes: Yves summer [facility] - (Same as: l 02:00: Senokot) Dextrose 2019-0 No 12.5 gm, Memor ia 50% Syringe 25 25 mL, l (D50W) 23:46: Route: Tai 00 IVP, Drug Form: INJ, Dosing Weight 95.455, kg, PRN, PRN Blood Glucose Results, Start date: 08/14/19 18:46:00 CDT, Duration: 30 day, Stop date: 09/13/19 18:45:00 CDT, 0 Glucagon 2019-0 No 1 mg, Memoria 25 Route: IM, l 23:46: Drug form: [place] PDR/INJ, PRN, Dosing Weight 95.455, kg, PRN Blood Glucose Results, Start date: 08/14/19 18:46:00 CDT, Duration: 30 day, Stop date: 09/13/19 18:45:00 CDT, 0 Sodium 2020-0 No 1,000 mL, Memori a Chloride 08-13 1000 l 0.9% 18:52: ml/hr, Tai (Bolus) [...] n 4-25 (Same As: l 18:52: Zithromax [place] 00 IV) Vital Signs Vital Name Observation Time Observation Value Comments Source Temperature Oral (F) 2019-08-17 16:46:00 98.3 F [facility] Heart Rate 2019-08-17 16:46:00 [facility] Respitory Rate 2019-08-17 16:46:00 Memori al Tai Systolic (mm Hg) 2019-08-17 16:46:00 Yves rial [place] Diastolic (mm Hg) 2019-08-17 16:46:00 Mem orial [place] Temperature Oral (F) 2019-08-17 12:08:00 98.5 F [facility] Heart Rate 2019-08-17 12:08:00 [facility] [place] Respitory Rate 2019-08-17 12:08:00 [facility] [place] Systolic (mm Hg) 2019-08-17 12:08:00 Yves rial [place] Diastolic (mm Hg) 2019-08-17 12:08:00 Mem orial Tai Temperature Oral (F) 2019-08-17 09:38:00 98.3 F [facility] [place] Heart Rate 2019-08-17 09:38:00 [facility] Respitory Rate 2019-08-17 09:38:00 [facility] [place] Systolic (mm Hg) 2019-08-17 09:38:00 Yves rial [place] Diastolic (mm Hg) 2019-08-17 09:38:00 Mem orial [place] Height 2019-08-16 15:17:00 172.72 cm [facility] [place] Weight 2019-08-16 13:42:00 [facility] [place] Height 2019-08-15 02:07:00 172.72 cm [facility] Weight 2019-08-15 02:07:00 [facility] BMI Calculated 2019-08-15 02:07:00 [facility] [place] Height 2019-08-14 18:47:00 172.72 cm [facility] [place] BMI Calculated 2019-08-14 18:47:00 [facility] [place] Weight 2019-08-14 18:47:00 [facility] [place] Procedures This patient has no known procedures. Encounters Start End Encounter Admission Attending Care Care Encounter Source Date/Time Date/Time Type Type Clinicians Facility Department ID 2019-08-14 2019-08-17 Outpatient CEDRIC Taylor [facility] [id number] 575 13:45:16 16:18:00 Ronnie 00 Eliud 2019-08-16 2019-08-14 Inpatient E [id number] [facility] 07:51:00 18:[facility]:[address] [facility] 2019-06-01 2019-06-01 Outpatient E [id number] 03:18:00 03:18:[address] [facility] 2016-09-22 2017-06-17 Outpatient [facility] [id number] [place] 00:00:00 00:00:00 [facility] 2017-06-15 2017-06-15 Outpatient [facility] [id number] 7 [place] 02:12:01 02:12:01 [facility] Results Test Description Test Time Test Comments Results Result Comments Source CHEM PANEL 2019-08-16 85 [facility] 08:12:00 CHEM PANEL 2019-08-16 11 [facility] 08:12:00 CHEM PANEL 2019-08-16 0.75 [facility] nn 08:12:00 CHEM PANEL 2019-08-16 136 [facility] [...] code = MCH) 32.1 pg 27.0-31.0 [facility] FovhradOZQIRZYHBZ0332-71-11 08:12:0033.9[facility]ann[facility]MATOLOGY 2019-08-16 08:12:0012.5[facility] [id number] 08:12:67224Ymabgspx GcnjrzbZRVTRTWLEK9776-27-65 08:12:009.6[facility] HermannCHEM [id number] 03:10:000.12[facility]annDRUG [id number] 21:27:00Negative *NA*(08/14/19 4:27 PM)[facility] [id number] 21:27:00Negative *NA*(08/14/19 4:27 PM)[facility] [id number] 21:27:00Negative *NA*(08/14/19 4:27 PM) [facility] [id number] 21:27:00Negative *NA*(08/14/19 4:27 PM) [facility] [id number] 21:27:00Negative *NA*(08/14/19 4:27 PM) [facility] [id number] 21:27:00Negative *NA*(08/14/19 4:27 PM) [facility] [id number] 21:27:00Negative *NA*(08/14/19 4:27 PM) [facility] [id number] 21:27:00See Note (08/14/19 4:27 PM)[facility] HermannIMIPENEM:SUSC:PT:ISOLATE:ORDQN:[id number] 21:27:00Escherichia coli [facility] AND [id number] 21:27:00Yellow *NA*(08/14/19 4:27 PM) [facility] [id number] 21:27:00Slight *ABN*(08/14/19 4:27 PM) [facility] [id number] 21:27:00 Test Item Value Reference Range Interpretation Comments UA Spec Grav (test code = UA Spec 1.018 1 Grav) [facility] [id number] 21:27:00 Test Item Value Reference Range Interpretation Comments UA pH (test code = UA pH) 5.0 1 5.0-8.0 [facility] [id number] 21:27:00Negative *NA*(08/14/19 4:27 PM) [facility] [id number] 21:27:00Large *ABN*(08/14/19 4:27 PM) [facility] [id number] 21:27:00Positive *ABN*(08/14/19 4:27 PM)[facility] [id number] 21:27:00Moderate *ABN*(08/14/19 4:27 PM)[facility] [id number] 21:27:0059[facility] [id number] 21:27:0018[facility] HermannCARDIAC [id number] 19:37:00 33[facility]annCARDIAC [id number] 19:37:00<0.02[facility] HermannCHEM [id number] 19:37:14794Cfayxmib HermannCHEM [id number] 19:37:0010 [facility]annCHEM [id number] 19:37:000.75[facility]annCHEM PANEL 2019-08-14 19:37:43549Mtksxzwp HermannCHEM [id number] 19:37:003.7[facility]annCHEM [id number] 19:37:92002Vztmquex HermannCHEM VTWSR9241-55-00 19:37:0025[facility] HermannCHEM NDXZJ8770-02-13 19:37:009.3[facility]annCHEM [id number] 19:37:007.5[facility]annCHEM [id number] 19:37:003.6 [facility]annCHE[facility] [id number] 19:37:0088[facility] HermannCHEM PANEL 2019-08-14 19:37:0024[facility] HermannCHEM [id number] 19:37:94425Bodfndzb HermannCHEM [id number] 19:37:001.1[facility]annCHEM [id number] 19:37:0011.7[facility] HermannCHEM [id number] 19:37:00 Test Item Value Reference Range Interpretation Comments B/C Ratio (test code = B/C Ratio) 13 1 -25 [facility]annCHEM [id number] 19:37:003.9[facility] HermannCHEM PANEL 2019-08-14 19:37:00 Test Item Value Reference Range Interpretation Comments A/G Ratio (test code = A/G Ratio) 0.9 1 0.7-1.6 [facility]annCHEM [id number] 19:37:66945Scdqmwjk HermannCHEM PANEL 2019-08-14 19:37:001.1[facility] HermannCHEM [id number] 19:37:0027.0[facility] HermannCHEM [id number] 19:37:0061[facility] WwxnpkbKWFNSPHXSH7642-97-77 19:37:0014.1[facility] IcldkzfLLJNKCLGIP0089-94-30 19:37:004.72[facility] AHVMGPXSHT8487-53-89 19:37:0015.1[facility] VecjuqrDGTJNFTXRN0408-41-30 19:37:00 45.1[facility] KvtqzsxKYVUUPINEY6211-17-62 19:37:0095.6[facility] HermannHEMATOLOGY 2019-08-14 19:37:00 Test Item Value Reference Range Interpretation Comments MCH (test code = MCH) 32.0 pg 27.0-31.0 [facility] [id number] 19:37:0033.5[facility] HermannHEMATOLOGY 2019-08-14 19:37:0012.6[facility] CaplybnAHRUMFQSDL5680-39-36 19:37:76188Isurfynb CwcfmleHZOFTFAUIR9715-29-46 19:37:009.6[facility] UnzkxuvUPAKPGSZLG5439-24-98 19:37:0085.0[facility] XieujtpALUWIWOHZC5534-32-42 19:37:007.7[facility] Tai [id number] 19:37:006.7[facility] OmxiwdxYXGXREUUVZ7104-30-28 19:37:000.4 [facility] ZxsdgwnKTZCMPDRTS9314-15-15 19:37:000.2[facility] HermannHEMATOLOGY 2019-08-14 19:37:0012.0[facility] PnwcmwdWRVIYVLEKL6421-66-14 19:37:001.1[facility] AcvjnweWEWWYZTWMI4431-10-87 19:37:000.9[facility] PhfgvjcHTGQBCPZPH5661-49-20 19:37:000.1[facility] TpjujbxUHBVTVTKEO8704-82-31 19:37:00Not Detected (08/14/19 2:37 PM)[facility]
--- NOTE | 2020-09-03 12:10 | RAD REPORT ---
EXAM DESCRIPTION: CT - Abdomen Pelvis W Contrast - 09/03/2020 11:51 am CLINICAL HISTORY: ABD PAIN Patient is status post colostomy placement of bowel perforation 1 week earlier COMPARISON: Abdomen Pelvis W Contrast dated 08/26/2020 TECHNIQUE: Biphasic, helical CT imaging of the abdomen and pelvis was performed following 100 ml non -ionic IV contrast. No oral contrast. All CT scans are performed using dose optimization technique as appropriate and may include automated exposure control or mA/KV adjustment according to patient size. FINDINGS: Small bilateral pleural effusions have developed since prior imaging. Minimal posterior nahomi ng base atelectasis present. The liver, spleen, and pancreas show no suspicious findings. Numerous small gallstones layer in the d ependent portion the gallbladder. No acute gallbladder finding. No biliary tree dilatation. Symmetric renal function is seen with no hydronephrosis or suspicious renal mass. No pyelonephritis o r acute parenchymal process. Nonobstructing calyx calculi are present in each kidney, more so in the lower pole right kidney. No adrenal abnormalities. Air is present in the urinary bladder presumably f rom catheterization. Air and fluid dilate the stomach. No gastric outlet obstruction or mass identified. Duodenum is bhavesh l size. There are numerous distended and dilated small bowel loops to the ileocecal valve level. No a ppendicitis findings. There is some fecalized bowel content in the small bowel. An obstructing mass o r point of obstruction is not confirmed at this time. Prominent postoperative ileus is favored over o r mechanical small bowel obstruction. Left mid abdomen colostomy site shows no peristomal herniation or suspicious finding. No acute colon process seen. Spivey pouch anastomotic site shows no unexpected finding for the recent surgery. Ther e is no abscess present. No free air or abnormal free fluid collection. No bulky lymphadenopathy or m ass. Skin zuri remain in the midline abdomen. No suspicious bony findings. Disc and bone degenerative changes are present. IMPRESSION: Numerous distended and dilated small bowel loops are present extending the ligament of T joshua to the ileocecal valve. Prominent postoperative ileus is favored over a mechanical small bowel obstruction. Follow-up imaging can be obtained as warranted. No abscess is present. The rectosigmoid region anastomosis shows no suspicious finding and no peristo mal abnormality seen. Dilated stomach filled with air and fluid.
[2020-09-03 12:12] LABS: Basophils % 0.4 % (0-1.3); Lymphocytes % 14.2 % (15.3-44.8); RBC Red Blood Cell Count 3.42 M/uL (4.33-5.43)
[2020-09-03] MEDS ORDERED: NA CHLORIDE 0.9% 1,000 ML ONE (12:12)
[2020-09-03 12:42] LABS: ALT/SGPT 26 U/L (12-78); AST/SGOT 22 U/L (15-37); Albumin 2.6 g/dL (3.4-5.0); Alkaline Phosphatase 67 U/L (45-117); BUN Blood Urea Nitrogen 6 mg/dL (7-18); Bicarbonate 26 mmol/L (21-32); Bilirubin Direct 0.1 mg/dL (0-0.2); Bilirubin Total 0.4 mg/dL (0.2-1.0); Glucose Level 120 mg/dL (74-106); Lipase 1058 U/L (73-393); Protein, Total 7.2 g/dL (6.4-8.2); Sodium Level 143 mmol/L (136-145)
[2020-09-03 13:09] LABS: Blood Morphology Comment NOT SEEN (NOT SEEN); Platelet Estimate INCR
--- NOTE | 2020-09-03 14:41 | ER ---
Nurse's Notes [facility] Name: Geoff Velez Age: 54 yrs Sex: Male : 1965 Arrival Date: 09/03/2020 Time: 11:15 Bed 8 Private MD: Diagnosis: Acute pancreatitis Presentation: 09/03 11:16 Chief complaint: EMS states: "[facility] called for a pt having jd3 abdominal pain. on arrival the pt is reporting very little abdominal pain, but is tender to the touch near recent surgical site. pt was treated and repaired of a bowel perforation and colostomy placement about a week ago. no signs of infection noted, but the nursing staff did report that the output into the colostomy was mostly bile vs bowel movements.". Coronavirus screen: At this time, the client does not indicate any symptoms associated with coronavirus-19. Ebola Screen: Patient negative for fever greater than or equal to 101.5 degrees Fahrenheit, and additional compatible Ebola Virus Disease symptoms. Initial Sepsis Screen: Does the patient meet any 2 criteria? No. Patient's initial sepsis screen is negative. Does the patient have a suspected source of infection? No. Patient's initial sepsis screen is negative. Risk Assessment: Do you want to hurt yourself or someone else? Patient reports no desire to harm self or others. Onset of symptoms was September 02, 2020. 11:16 Method Of Arrival: EMS: [facility] jd3 11:16 Acuity: MARKEL 3 jd3 Historical: - Allergies: 11:24 No Known Allergies; jd3 - Home Meds: 11:24 metoprolol tartrate 25 mg Oral tab 1 tab 2 times per day [Active]; Milk of Magnesia 400 jd3 mg/5 mL Oral susp once daily [Active]; mirtazapine 30 mg Oral tab 1 tab nightly [Active]; Protonix 40 mg Oral TbEC 1 tab once daily [Active]; - PMHx: 11:24 CVA; HEP C; Multiple Sclerosis; Paraplegia; postlaminectomy syndrome; jd3 - PSHx: 11:24 Colostomy; jd3 - Immunization history:: Adult Immunizations up to date. - Social history:: Smoking status: unknown Patient/guardian denies using alcohol, street drugs, The patient lives with family. - Family history:: not pertinent. Screenin:28 Abuse screen: Denies threats or abuse. Nutritional screening: No deficits noted. jd3 Tuberculosis screening: No symptoms or risk factors identified. Fall Risk Ambulatory Aid- None/Bed Rest/Nurse Assist (0 pts). Gait- Normal/Bed Rest/Wheelchair (0 pts) Mental Status- Oriented to own ability (0 pts). Total Arciniega Fall Scale indicates No Risk (0-24 pts). Assessment: 11:25 General: Appears in no apparent distress. comfortable, Behavior is calm, cooperative, jd3 appropriate for age. Pain: Complains of pain in left lower quadrant Quality of pain is described as tender, pt denies pain unless palpated. Neuro: Level of Consciousness is awake, alert, obeys commands, Oriented to person, time, at baseline. Cardiovascular: Denies chest pain, Capillary refill < 3 seconds Patient's skin is warm and dry. Respiratory: Airway is patent Respiratory effort is even, unlabored, Respiratory pattern is regular, symmetrical. GI: Abdomen is round Colostomy site is clean and dry. Ostomy appliance is intact. Bowel sounds hypoactive in right upper quadrant, left upper quadrant, right lower quadrant and left lower quadrant Abd is soft X 4 quads Abdomen is tender to palpation in left lower quadrant. : No signs and/or symptoms were reported regarding the genitourinary system. EENT: No signs and/or symptoms were reported regarding the EENT system. Derm: Skin is intact, Skin is dry, Skin is normal, Skin temperature is warm. Musculoskeletal: Circulation, motion, and sensation intact. Range of motion: intact in all extremities. 12:22 Reassessment: Patient appears in no apparent distress at this time. Patient and/or jd3 family updated on plan of care and expected duration. Pain level reassessed. Patient is alert, oriented x 3, equal unlabored respirations, skin warm/dry/pink. awaiting results. 13:24 Reassessment: Patient appears in no apparent distress at this time. Patient and/or jd3 family updated on plan of care and expected duration. Pain level reassessed. Patient is alert, oriented x 3, equal unlabored respirations, skin warm/dry/pink. resting in bed, awaiting results. 14:33 Reassessment: Patient appears in no apparent distress at this time. No changes from jd3 previously documented assessment. Patient and/or family updated on plan of care and expected duration. Pain level reassessed. Patient is alert, oriented x 3, equal unlabored respirations, skin warm/dry/pink. 15:20 Reassessment: Patient appears in no apparent distress at this time. Patient and/or jd3 family updated on plan of care and expected duration. Pain level reassessed. Patient is alert, oriented x 3, equal unlabored respirations, skin warm/dry/pink. 15:50 Reassessment: Patient and/or family updated on plan of care and expected duration. Pain jd3 level reassessed. Patient is alert, oriented x 3, equal unlabored respirations, skin warm/dry/pink. [facility] called and notified of pt discharge, nurse home reported that report had to wait until their DON needs to review the chart prior to pt discharge. awaiting call back from [facility]. 16:14 Reassessment: Patient appears in no apparent distress at this time. Patient and/or jd3 family updated on plan of care and expected duration. Pain level reassessed. Patient is alert, oriented x 3, equal unlabored respirations, skin warm/dry/pink. report given to Lizeth VELASQUEZ at [facility]. Vital Signs: 11:24 BP 127 / 99; Pulse 95; Resp 18 S; Temp 99.2(O); Pulse Ox 96% on R/A; Weight 125.65 kg [facility] (R); Height 5 ft. 8 in. (172.72 cm) (R); Pain 0/10; 12:23 BP 117 / 73; Pulse 80; Resp 16 S; Pulse Ox 99% on R/A; jd3 13:25 BP 141 / 83; Pulse 81; Resp 17 S; Pulse Ox 98% on R/A; jd3 14:34 BP 136 / 78; Pulse 80; Resp 17 S; Pulse Ox 99% on R/A; jd3 15:21 Pulse 90; Resp 17 S; Pulse Ox 98% on R/A; jd3 15:52 BP 135 / 94; Pulse 96; Resp 19 S; Pulse Ox 99% on R/A; jd3 11:24 Body Mass Index 42.12 (125.65 kg, 172.72 cm) [facility] ED Course: 11:15 Patient arrived in ED. em1 11:16 Gabriel Maki, RN is Primary Nurse. jd3 11:21 Triage completed. jd3 11:22 Alena Arias MD is Attending Physician. ma2 11:25 Arm band placed on. jd3 11:28 Patient has correct armband on for positive identification. Placed in gown. Bed in low jd3 position. Call light in reach. Side rails up X2. Adult w/ patient. Pulse ox on. NIBP on. 11:49 Inserted saline lock: 22 gauge in right forearm, using aseptic technique. Blood jd3 collected. 11:51 CT Abd/Pelvis - IV Contrast Only In Process Unspecified. EDMS 14:40 Xavier Cortez MD is Referral Physician. ma2 16:50 No provider procedures requiring assistance completed. IV discontinued, intact, jd3 bleeding controlled, No redness/swelling at site. Pressure dressing applied. Administered Medications: 11:57 Drug: NS 0.9% 1000 ml Route: IV; Rate: 1 bolus; Site: right forearm; jd3 12:57 Follow up: Response: No adverse reaction; IV Status: Completed infusion jd3 15:27 Not Given (Patient Refused): morphine 4 mg IVP once; RASS on ADMIN: Combtv4, Very jd3 Agttd3, Agttd2, Rstlss1, AlertClm0, Drwsy-1, Lt Sdtn-2, Mod Sdtn-3, Dp Sdtn-4, UnArsble-5 15:27 Not Given (Patient Refused): Zofran (Ondansetron) 4 mg IVP once; over 2 minutes jd3 Outcome: 14:40 Discharge ordered by . ma2 16:[address] Report called to [facility] report given to EMS for jd3 discharge to [facility] 16:50 Condition: stable 16:50 Instructed on discharge instructions, follow up and referral plans. Demonstrated understanding of instructions, follow-up care. 16:51 Patient left the ED. aa5 Signatures: Dispatcher [employer] Owen Quintero em1 Zeinab Glynn, RN RN aa5 Gabriel Maki RN RN jd3 Alena Arias MD MD ma2 Corrections: (The following items were deleted from the chart) 15:52 15:50 Reassessment: [facility] called and notified of pt discharge, nurse home reported jd3 that report had to wait until their DON needs to review the chart prior to pt discharge. awaiting call back from [facility]. jd3 15:53 15:21 Pulse 86bpm; Resp 17bpm; Spontaneous; Pulse Ox 98% RA; jd3 jd3 19:19 11:25 Neuro: Level of Consciousness is awake, alert, obeys commands, Oriented to jd3 person, place, time, situation, jd3
--- NOTE | 2020-09-03 14:41 | EDPHYS ---
Physician Documentation [facility] Name: Geoff Velez Age: 54 yrs Sex: Male : 1965 Arrival Date: 09/03/2020 Time: 11:15 Bed 8 Private MD: ED Physician Alena Arias HPI: 09/03 11:45 This 54 yrs old Unknown Male presents to ER via EMS with complaints of abd pain. ma2 11:45 Onset: The symptoms/episode began/occurred gradually, 2 hour(s) ago. Associated signs ma2 and symptoms: Pertinent negatives: anorexia, chest pain, diarrhea. Severity of pain: At its worst the pain was very mild in the emergency department the pain has resolved. The patient has experienced similar episodes in the past. s/p operative repair of bowel perf and has colostomy. . Historical: - Allergies: 11:24 No Known Allergies; jd3 - Home Meds: 11:24 metoprolol tartrate 25 mg Oral tab 1 tab 2 times per day [Active]; Milk of Magnesia 400 jd3 mg/5 mL Oral susp once daily [Active]; mirtazapine 30 mg Oral tab 1 tab nightly [Active]; Protonix 40 mg Oral TbEC 1 tab once daily [Active]; - PMHx: 11:24 CVA; HEP C; Multiple Sclerosis; Paraplegia; postlaminectomy syndrome; jd3 - PSHx: 11:24 Colostomy; jd3 - Immunization history:: Adult Immunizations up to date. - Social history:: Smoking status: unknown Patient/guardian denies using alcohol, street drugs, The patient lives with family. - Family history:: not pertinent. ROS: 11:45 Constitutional: Negative for fever, chills, and weight loss. ma2 11:45 All other systems are negative. Exam: 11:45 Constitutional: This is a well developed, well nourished patient who is awake, alert, ma2 and in no acute distress. ENT: Nares patent. No nasal discharge, no septal abnormalities noted. Tympanic membranes are normal and external auditory canals are clear. Oropharynx with no redness, swelling, or masses, exudates, or evidence of obstruction, uvula midline. Mucous membranes moist. Neck: Trachea midline, no thyromegaly or masses palpated, and no cervical lymphadenopathy. Supple, full range of motion without nuchal rigidity, or vertebral point tenderness. No Meningismus. Chest/axilla: Normal chest wall appearance and motion. Nontender with no deformity. No lesions are appreciated. Cardiovascular: Regular rate and rhythm with a normal S1 and S2. No gallops, murmurs, or rubs. Normal PMI, no JVD. No pulse deficits. Respiratory: Lungs have equal breath sounds bilaterally, clear to auscultation and percussion. No rales, rhonchi or wheezes noted. No increased work of breathing, no retractions or nasal flaring. Abdomen/GI: ex-lap surgical site is dry and partially healed non tender no induration, cholostomy site is also in good order and non tender. otherwise Soft, non-tender, with normal bowel sounds. No distension or tympany. No guarding or rebound. No evidence of tenderness throughout. Skin: Warm, dry with normal turgor. Normal color with no rashes, no lesions, and no evidence of cellulitis. MS/ Extremity: Pulses equal, no cyanosis. Neurovascular intact. Full, normal range of motion. Neuro: Awake and alert, GCS 15, oriented to person, place, time, and situation. Cranial nerves II-XII grossly intact. Motor strength 5/5 in all extremities. Sensory grossly intact. Cerebellar exam normal. Normal gait. Vital Signs: 11:24 BP 127 / 99; Pulse 95; Resp 18 S; Temp 99.2(O); Pulse Ox 96% on R/A; Weight 125.65 kg jd3 (R); Height 5 ft. 8 in. (172.72 cm) (R); Pain 0/10; 12:23 BP 117 / 73; Pulse 80; Resp 16 S; Pulse Ox 99% on R/A; jd3 13:25 BP 141 / 83; Pulse 81; Resp 17 S; Pulse Ox 98% on R/A; jd3 14:34 BP 136 / 78; Pulse 80; Resp 17 S; Pulse Ox 99% on R/A; jd3 15:21 Pulse 90; Resp 17 S; Pulse Ox 98% on R/A; jd3 15:52 BP 135 / 94; Pulse 96; Resp 19 S; Pulse Ox 99% on R/A; jd3 11:24 Body Mass Index 42.12 (125.65 kg, 172.72 cm) jd3 MDM: 11:22 Patient medically screened. ma2 11:45 Differential diagnosis: gastritis, gastroesophageal reflux disease, Irritable bowel ma2 syndrome. Data reviewed: vital signs, nurses notes. Counseling: I had a detailed discussion with the patient and/or guardian regarding: the historical points, exam findings, and any diagnostic results supporting the discharge/admit diagnosis, the presence of at least one elevated blood pressure reading (>120/80) during this emergency department visit, the need for outpatient follow up. 14:38 ED course: patient has mild pancreatitis with mildly elevated lipase, however his abd ma2 pain has improved prior to er arrival and his pain resolved now. he is able ot pass stool via colostomy, he needs pain control and follow up with gi doctor however no need to be admitted as he is low risk per katharina score for pancreatitis . ED course: i offered observation, [id number] paitent would like to be discharged and will follow up with gi and his pcp . 09/03 11:24 Order name: Basic Metabolic Panel; Complete Time: 14: [facility] 09/03 11:24 Order name: CBC with Diff; Complete Time: 14: [facility] 09/03 11:24 Order name: Hepatic Function; Complete Time: 14:01 [facility] 09/03 11:24 Order name: Lipase; Complete Time: 14:01 [facility] 09/03 11:24 Order name: CT Abd/Pelvis - IV Contrast Only; Complete Time: 14:01 [facility] 09/03 12:20 Order name: Manual Differential; Complete Time: 14:01 [facility] 09/03 11:24 Order name: IV Saline Lock; Complete Time: 11:48 [facility] 09/03 11:24 Order name: Labs collected and sent; Complete Time: 11:48 [facility] Administered Medications: 11:57 Drug: NS 0.9% 1000 ml Route: IV; Rate: 1 bolus; Site: right forearm; jd3 12:57 Follow up: Response: No adverse reaction; IV Status: Completed infusion jd3 15:27 Not Given (Patient Refused): morphine 4 mg IVP once; RASS on ADMIN: Combtv4, Very jd3 Agttd3, Agttd2, Rstlss1, AlertClm0, Drwsy-1, Lt Sdtn-2, Mod Sdtn-3, Dp Sdtn-4, UnArsble-5 15:27 Not Given (Patient Refused): Zofran (Ondansetron) 4 mg IVP once; over 2 minutes jd3 Disposition: 09/03/20 14:40 Discharged to Home. Impression: Acute pancreatitis. - Condition is Stable. - Discharge Instructions: Acute Pancreatitis. - Prescriptions for Diclofenac Sodium 75 mg Oral Tablet Sustained Release - take 1 tablet by ORAL route 2 times per day; 30 tablet. Zofran 4 mg Oral Tablet - take 1 tablet by ORAL route every 12 hours As needed; 20 tablet. - Medication Reconciliation Form, Thank You Letter, Antibiotic Education, Prescription Opioid Use form. - Follow up: Private Physician; When: Tomorrow; Reason: Continuance of care. Follow up: Xavier Cortez MD; When: Tomorrow; Reason: If symptoms return. Signatures: Dispatcher [employer] EDMS Zeinab Glynn RN RN aa5 Gabriel Maki RN RN jd3 Alena Arias MD MD ma2 Corrections: (The following items were deleted from the chart) 16:51 14:40 09/03/2020 14:40 Discharged to Home. Impression: Acute pancreatitis. Condition is aa5 Stable. Prescriptions for Diclofenac Sodium 75 mg Oral Tablet Sustained Release - take 1 tablet by ORAL route 2 times per day; 30 tablet. and Forms are Medication Reconciliation Form, Thank You Letter, Antibiotic Education, Prescription Opioid Use. Follow up: Private Physician; When: Tomorrow; Reason: Continuance of care. Follow up: Xavier Cortez; When: Tomorrow; Reason: If symptoms return. ma2
[2020-09-03 16:56] VITALS: TEMP 99.2
[2020-09-03 17:04] VITALS: BP 135/94; O2SAT 99
== END 2020-09-03 16:51 | disposition home or self-care (01) ==
LOC: ER 11:02
DX: K85.90 Acute pancreatitis without necrosis or infection, unspecified (principal); Z86.73 Personal history of transient ischemic attack (TIA), and cerebral infarction without residual deficits
CPT/HCPCS: 85025; 80048; 36415; 80076; 83690; 74177; 96360; 99284; Q9967; J7030

== ENCOUNTER 2021-05-01 05:20 | Inpatient (IN) | payer OTHER ==
--- OUTSIDE RECORDS SUMMARY | 2021-05-01 05:22 | XMS REPORT | Continuity of Care Document ---
:1965 Author Organization [facility] t Address [address] [place] [address] Care Team Providers Name Role Phone ALEA MENDOZA Attending Clinician Unavailable VLADIMIR MENDOZA Admitting Clinician Unavailable Problems This patient has no known problems. Allergies, Adverse Reactions, Alerts This patient has no known allergies or adverse reactions. Medications This patient has no known medications. Procedures This patient has no known procedures. Encounters Start End Encounter Admission Attending Care Care Encounter Source Date/Time Date/Time Type Type Clinicians Facility Department ID 2021-01-27 Inpatient [facility] [id number] [facility] 18:51:[facility] 2019-08-16 2019-08-17 Inpatient E CEDRIC MENDOZA [id number] 07:51:00 16:18:[address] [facility] 2019-06-01 2019-06-01 Outpatient [id number] 03:18:00 03:18:[address] [facility] 2016-09-22 2017-06-17 [id number] [address] 00:00:00 00:00:00 Counts Include [facility] Office 2017-06-15 2017-06-15 [facility] [id number] 02:12:01 02:12:01 Counts Include [facility] Office Results This patient has no known results.
[2021-05-01] MEDS ORDERED: NA CHLORIDE 0.9% 250 ML ONE ×2 (05:36→09:47)
[2021-05-01] MEDS ORDERED: NOREPINEPHRINE 4 MG/4 ML VIAL ONE ×2 (05:36→07:57)
[2021-05-01] MEDS ORDERED: DIGOXIN 0.25 MG/ML AMP ONE (05:48)
[2021-05-01] MEDS ORDERED: NA CHLORIDE 0.9% 1,000 ML ONE ×3 (05:57→07:52)
[2021-05-01 06:24] LABS: Protime INR 1.39
--- NOTE | 2021-05-01 06:53 | EDPHYS ---
Physician Documentation [facility] Name: Geoff Velez Age: 55 yrs Sex: Male : 1965 Arrival Date: 05/01/2021 Time: 05:21 Bed 7 Private MD: ED Physician Teodoro Sanchez HPI: 05/01 06:32 This 55 yrs old Unknown Male presents to ER via Unassigned with complaints of CPR AND eric COLLAPSE. 06:32 The patient has shortness of breath at rest. Onset: The symptoms/episode began/occurred eric just prior to arrival. Duration: The symptoms are continuous, and are markedly worse than the original presentation. The patient's shortness of breath has no apparent modifying factors. Preceding the arrest, the patient collapsed, was dyspneic. The arrest occurred at long-term. Pre-hospital course: EMS care prior to arrival: ACLS details: Initial rhythm was PEA. Airway:. Associated signs and symptoms: The patient has no apparent associated signs or symptoms. The patient has not experienced similar symptoms in the past. - Immunization history:: Adult Immunizations up to date. - Family history:: not pertinent. - Social history:: Smoking status: unknown. ROS: 06:32 Unable to obtain ROS due to patient is on ventilator, cpr. eric Exam: 06:32 Eyes: Pupils: are fixed and dilated. eric 06:40 Constitutional: The patient appears unkempt. eric 06:40 Cardiovascular: Rate: actual rate is 0 bpm, Rhythm: asystole, Pulses: not palpable, Heart sounds: none, Edema: is not appreciated, JVD: is not appreciated. 06:40 ECG was reviewed by the Attending Physician. Vital Signs: 05:34 BP 40 / 12; Pulse Ox 83% on ETT ambu; as6 05:40 BP 84 / 62; Pulse 167; Pulse Ox 94% on ETT ambu; as6 05:45 BP 86 / 47; Pulse 173; Pulse Ox 3% on ETT ambu; as6 07:17 BP 112 / 97; Pulse 117; Resp 19 S; Pulse Ox 86% on ETT vent; jd3 08:17 BP 81 / 42; Pulse 118; Resp 18 A; Temp 99.1(C); jd3 08:30 BP 86 / 74; Pulse 111; Resp 18 A; Pulse Ox 96% on ETT vent; jd3 08:50 BP 98 / 75; Pulse 111; Resp 18 A; Pulse Ox 97% on ETT vent; jd3 10:17 BP 102 / 87; Pulse 109; Resp 19 A; Pulse Ox 87% on ETT vent; jd3 Procedures: 06:43 Central Line: the site was prepped with Betadine, in sterile fashion, a triple lumen eric catheter was inserted, in the right in 2 attempts. placement was verified, by blood return, the site was dressed with the patient tolerated the procedure, well. MDM: 05:54 Patient medically screened. eric 06:32 Differential diagnosis: CHF exacerbation, arrythmia, cardiac arrest, respiratory eric arrest, renal failure, Myocardial Infarction pneumonia, Pulmonary Embolism Sepsis. Antibiotic administration: zosyn. The patient's Wells Deep Vein Thrombosis Score was calculated as follows: Total Score: 0-2 Pts- Low Risk. The patient's pulmonary embolism risk score was calculated as follows: Total Score: 0-2 points. This patient was found to be at low risk for a pulmonary embolism by using the Well's assessment criteria. Immunization status: Influenza vaccine: Data reviewed: vital signs, nurses notes, EMS record, lab test result(s), EKG, radiologic studies, CT scan, plain films. Data interpreted: quality assurance monitor: rate is 0 beats/min, rhythm is pulseless electrical activity, Pulse oximetry: on na. Test interpretation: by ED physician or midlevel provider: ECG, plain radiologic studies. Counseling: I had a detailed discussion with the patient and/or guardian regarding: the historical points, exam findings, and any diagnostic results supporting the discharge/admit diagnosis, lab results, radiology results, the need for further work-up and treatment in the hospital. 05/01 05:51 Order name: Glucose, Ancillary Testing; Complete Time: 06:25 EDMS 05/01 06:00 Order name: Basic Metabolic Panel [facility] 05/01 06:00 Order name: CBC with Diff [facility] 05/01 06:00 Order name: LFT's [facility] 05/01 06:00 Order name: Magnesium [facility] 05/01 06:00 Order name: NT PRO-BNP [facility] 05/01 06:00 Order name: PT-INR; Complete Time: 07:15 [facility] 05/01 06:00 Order name: Blood Culture Adult (2) [facility] 05/01 06:00 Order name: Lactate; Complete Time: 07:15 [facility] 05/01 06:00 Order name: Procalcitonin [facility] 05/01 06:00 Order name: SARS-COV-2 RT PCR (Document "Date of Onset" if Symptomatic) [facility] 05/01 06:01 Order name: Basic Metabolic Panel EDMS 05/01 06:02 Order name: ABG [facility] 05/01 06:02 Order name: ABG Arterial Blood Gas EDMS 05/01 07:49 Order name: Troponin High Sensitivity EDMS 05/01 07:58 Order name: Glucose, Ancillary Testing EDMS 05/01 08:16 Order name: Ammonia EDMS 05/01 08:16 Order name: Comprehensive Metabolic Panel EDMS 05/01 08:16 Order name: Comprehensive Metabolic Panel EDMS 05/01 08:16 Order name: Comprehensive Metabolic Panel EDMS 05/01 08:16 Order name: Lactate EDMS 05/01 08:16 Order name: Lactate EDMS 05/01 08:16 Order name: Lipid Profile EDMS 05/01 08:16 Order name: Lipid Profile EDMS 05/01 08:16 Order name: Magnesium EDMS 05/01 08:16 Order name: Magnesium EDMS 05/01 08:16 Order name: NT PRO-BNP EDMS 05/01 08:16 Order name: NT PRO-BNP EDMS 05/01 08:16 Order name: Phosphorus EDMS 05/01 06:00 Order name: XRAY Chest (1 view) [facility] 05/01 06:23 Order name: CT Chest, Abdomen, Pelvis - W/Contrast [facility] 05/01 08:16 Order name: Phosphorus EDMS 05/01 08:17 Order name: CBC with Automated Diff EDMS 05/01 08:17 Order name: Protime (+INR) EDMS 05/01 08:17 Order name: PTT, Activated Partial Thromb EDMS 05/01 08:17 Order name: CBC with Automated Diff EDMS 05/01 08:17 Order name: CBC with Automated Diff EDMS 05/01 08:17 Order name: Protime (+INR) EDMS 05/01 08:17 Order name: Protime (+INR) EDMS 05/01 08:17 Order name: PTT, Activated Partial Thromb EDMS 05/01 08:17 Order name: PTT, Activated Partial Thromb EDMS 05/01 08:17 Order name: Troponin I EDMS 05/01 08:17 Order name: Troponin I [facility] 05/01 08:17 Order name: Troponin I [facility] 05/01 08:17 Order name: Troponin I [facility] 05/01 08:19 Order name: Type and Screen [facility]MI 05/01 10:32 Order name: Lactate Sepsis 2 HR Follow-up [facility]MI 05/01 10:42 Order name: Manual Differential [facility] 05/01 15:24 Order name: Manual Differential [facility] 05/01 06:00 Order name: EKG; Complete Time: 06:01 [facility] 05/01 06:00 Order name: Cardiac monitoring; Complete Time: 06:45 [facility] 05/01 06:00 Order name: EKG - Nurse/Tech; Complete Time: 06:45 [facility] 05/01 06:00 Order name: IV Saline Lock; Complete Time: 06:45 [facility] 05/01 06:00 Order name: Labs collected and sent; Complete Time: 06:45 [facility] 05/01 06:00 Order name: O2 Per Protocol; Complete Time: 06:45 [facility] 05/01 06:00 Order name: O2 Sat Monitoring; Complete Time: 06:45 [facility] 05/01 06:00 Order name: Varma; Complete Time: 06:45 [facility] 05/01 06:01 Order name: NG Tube; Complete Time: 06:45 [facility] 05/01 08:17 Order name: CONS Physician Consult [facility] 05/01 08:17 Order name: CONS Physician Consult [facility] 05/01 08:17 Order name: CONS Physician Consult [facility] EC:40 Rate is 144 beats/min. Rhythm is regular. QRS Anderson is Normal. RI interval is normal. [facility] QRS interval is normal. QT interval is normal. No Q waves. T waves are Inverted in leads I, II, III, aVL, aVF, V2, V3, V4, V5, V6. Clinical impression: Sinus tachycardia. Interpreted by me. Reviewed by me. Administered Medications: 05:19 Drug: Sodium Bicarbonate 1 amp Route: IVP; Site: Other; as6 05:20 Drug: Calcium Chloride 1 grams Route: IVP; Site: Other; as6 05:21 Drug: EPINEPHrine 0.1mg/mL 1:10,000 1 mg Route: IVP; Site: Other; as6 05:24 Drug: EPINEPHrine 0.1mg/mL 1:10,000 1 mg Route: IVP; Site: Other; as6 05:26 Drug: EPINEPHrine 0.1mg/mL 1:10,000 1 mg Route: IVP; Site: Other; as6 05:28 Drug: Sodium Bicarbonate 1 amp Route: IVP; Site: right hand; as6 05:29 Drug: EPINEPHrine 0.1mg/mL 1:10,000 1 mg Route: IVP; Site: right hand; as6 05:33 Drug: EPINEPHrine 0.1mg/mL 1:10,000 1 mg Route: IVP; Site: right femoral; as6 05:34 Drug: Sodium Bicarbonate 1 amp Route: IVP; Site: right femoral; as6 06:00 Drug: NS 0.9% 1000 ml Route: IV; Rate: 1 bolus; Site: right femoral; al4 06:00 Drug: Digoxin 0.5 mg Route: IVP; Site: right femoral; al4 06:30 Drug: Levophed (norepinephrine) (4 mg/250 mL D5W 4 mcg/min {Note: started by night jd3 shift.} Route: IV; Rate: calculated rate; Site: right femoral; 07:05 Drug: NS 0.9% 1000 ml Route: IV; Rate: 1 bolus; Site: right femoral; al4 07:25 Drug: NS 0.9% 1000 ml Route: IV; Rate: 125 ml/hr; Site: right femoral; jd3 07:28 Drug: Tylenol Suppository 1300 mg Route: RI; jd3 07:32 Drug: EPINEPHrine 0.1mg/mL 1:10,000 1 mg Route: IVP; Site: right femoral; jd3 07:32 Drug: Calcium Chloride 1 grams Route: IVP; Site: right femoral; jd3 07:32 Drug: NS 0.9% 1000 ml Route: IV; Rate: 1 bolus; Site: right femoral; jd3 07:35 Drug: EPINEPHrine 0.1mg/mL 1:10,000 1 mg Route: IVP; Site: right femoral; jd3 07:45 Drug: ProTONIX (pantoprazole) 40 mg Route: IVP; Site: right femoral; jd3 07:47 Drug: Solu-CORTEF (hyrdoCORTISONE) 100 mg Route: IVP; Site: right femoral; jd3 07:50 Drug: Zosyn (piperacillin-tazobactam) 3.375 grams Route: IVPB; Infused Over: 60 mins; jd3 Site: right femoral; 08:10 Drug: Terry-Synephrine (phenylephrine) 100 mcg/min Route: IV; Rate: calculated rate; jd3 Site: right femoral; 10:08 Drug: vancoMYCIN 1 grams {Note: left leg IO.} Route: IVPB; Infused Over: 2 hrs; Site: jd3 Other; 10:54 Not Given (charted per Kicksend): Levophed (norepinephrine) (4 mg/250 mL D5W 4 mcg/min jd3 IV at calculated rate Per protocol; (final concentration is 16 microgram/mL) Disposition Summary: 05/01/21 06:52 Hospitalization Ordered Hospitalization Status: Inpatient Admission eric Provider: Alena Franks cha Condition: Serious eric Problem: new eric Symptoms: have improved eric Bed/Room Type: Standard eric Location: [facility] ER HOLD(05/01/21 09:45) Room Assignment: ERHOLD-(05/01/21 16:42) ll1 Diagnosis - Acute respiratory failure with hypoxia eric - Cardiac arrhythmia, unspecified eric - Cardiac arrest due to other underlying condition eric Forms: - Medication Reconciliation Form eric - SBAR form eric Signatures: Dispatcher [employer] EDMS Wendy Yanez Corey, MD MD cha Smirch, Shelby RN EVA ss Gabriel Maki RN RN jd3 Lewis, Lynsay, RN RN ll1 Jose Villalobos RN RN as6 Cj [email or web address] Corrections: (The following items were deleted from the chart) 06:42 06:42 PMHx: Multiple Sclerosis; eric eric 06:42 06:42 PMHx: HEP C; eric eric 06:42 06:42 PMHx: Paraplegia; eric eric 06:42 06:42 PMHx: CVA; eric eric 06:42 06:42 PMHx: postlaminectomy syndrome; eric eric 07:49 06:01 TROPONIN (EMERG DEPT USE ONLY)+C.LAB.BRZ ordered. EDMS EDMS 09:45 06:52 Intensive Care Unit eric ss 09:45 06:52 eric ss 16:41 09:45 ERHOLD- ll1 16:42 16:41 ll1 ll1
[2021-05-01 06:56] LABS: Absolute Lymphocytes (CBC) 3.7 K/uL (0.7-4.9); Hematocrit 52.4 % (39.6-49.0); Lymphocytes % 34.4 % (15.3-44.8); MPV 9.5 fL (7.6-11.3); RBC Red Blood Cell Count 5.12 M/uL (4.33-5.43)
[2021-05-01] MEDS ORDERED: NA CHLORIDE 0.9% 100 ML ONE (07:20)
[2021-05-01] MEDS ORDERED: PANTOPRAZOLE 40 MG INJ ONE (07:20)
[2021-05-01] MEDS ORDERED: ACETAMINOPHEN 650MG/RECT SUPP PR ONE (07:20)
[2021-05-01] MEDS ORDERED: PIPERACIL/TAZO 3.375 GM VIAL IV ONE (07:21)
[2021-05-01 07:36] LABS: Albumin 1.9 g/dL (3.4-5.0); Bilirubin Direct 0.1 mg/dL (0-0.2); Bilirubin Total 0.6 mg/dL (0.2-1.0); Protein, Total 5.4 g/dL (6.4-8.2)
[2021-05-01 07:38] LABS: Magnesium 2.5 mg/dL (1.8-2.4); Potassium 4.2 mmol/L (3.5-5.1)
[2021-05-01] MEDS ORDERED: HYDROCORTISONE SUC 100 MG INJ ONE (07:48)
[2021-05-01 07:55] LABS: Troponin High Sensitivity 276.4 pg/mL (<58.9)
[2021-05-01] MEDS ORDERED: NA CHLORIDE 0.9% 0 ML ONE (07:57)
[2021-05-01] MEDS ORDERED: D5W 250 ML IV ONE (08:02)
[2021-05-01] MEDS ORDERED: ACETAMINOPHEN 650MG/RECT SUPP PR PRN (08:05)
[2021-05-01] MEDS ORDERED: ONDANSETRON 4 MG/2 ML VIAL IV PRN (08:05)
[2021-05-01] MEDS ORDERED: SODIUM CHLORIDE 0.9% 10ML INJ IV PRN (08:05)
[2021-05-01] MEDS ORDERED: PANTOPRAZOLE 40 MG INJ IVP ONE (08:05)
[2021-05-01] MEDS ORDERED: ALBUMIN HUMAN 25% 200 ML IV ONE (08:22)
--- NOTE | 2021-05-01 08:40 | RAD REPORT ---
EXAM DESCRIPTION: RAD - Chest Single View - 05/01/2021 6:15 am CLINICAL HISTORY: DYSPNEA Chest pain. COMPARISON: Chest Single View dated 08/29/2020; Chest Single View dated 08/26/2020 FINDINGS: Portable technique limits examination quality. Tip of the ET tube is well above the hugo close to the clavicular head level. Mild to moderate bila teral pulmonary opacities could represent interstitial edema or viral infection. No displaced fractur es.Enteric tube tip appears just entering the distended stomach.
[2021-05-01] MEDS ORDERED: VANCOMYCIN 1 GM in NA CHLORIDE 0.9% 250 ML IVPB ONE (09:00)
[2021-05-01] MEDS ORDERED: PANTOPRAZOLE INJ 80 MG in NA CHLORIDE 0.9% 250 ML IV SCH (09:00)
[2021-05-01] MEDS ORDERED: D5W 1,000 ML with NA BICARB 8.4% 100 MEQ IV SCH ×2 (09:00)
[2021-05-01] MEDS ORDERED: OCTREOTIDE 500 MCG in NA CHLORIDE 0.9% 500 ML IV SCH (09:00)
[2021-05-01] MEDS ORDERED: VANCOMYCIN 1 GM/VIAL ONE (09:47)
[2021-05-01] MEDS ORDERED: NOREPINEPHRINE 8 MG in D5W 250 ML IV PRN (10:23)
[2021-05-01 10:38] VITALS: O2SAT 85; BMI 33.9
[2021-05-01 10:41] LABS: Anisocytosis SLIGHT; Blood Morphology Comment NOT SEEN (NOT SEEN); Platelet Estimate ADEQ; Polychromasia SLIGHT
[2021-05-01 10:42] LABS: Macrocytosis 1+
[2021-05-01 11:58] LABS: Absolute Lymphocytes (CBC) 2.1 K/uL (0.7-4.9); Hematocrit 42.5 % (39.6-49.0); Lymphocytes % 40.2 % (15.3-44.8); MPV 8.8 fL (7.6-11.3); RBC Red Blood Cell Count 4.17 M/uL (4.33-5.43)
[2021-05-01 12:13] LABS: Albumin 2.4 g/dL (3.4-5.0)
[2021-05-01 12:16] LABS: Potassium 4.5 mmol/L (3.5-5.1)
[2021-05-01 12:21] LABS: Protein, Total 4.9 g/dL (6.4-8.2)
[2021-05-01 12:27] LABS: Protime INR 3.47
[2021-05-01 13:13] VITALS: BP 49/25; TEMP 96.6
--- NOTE | 2021-05-01 14:14 | CON ---
Date of Consultation: 05/01/2021 Reason For Consultation: Acidosis, elevation in BUN and creatinine. All the information has been obtained from the record as the patient is intubated. History Of Present Illness: This is a 55-year-old gentleman with significant past medical history of CVA, hep C, multiple sclerosis, paraplegic. The patient is a custodial resident. The patient was brought to the hospital because of altered mental status and cardiac arrest. CPR in progress. The patient over the night had 3 cardiac arrests with resuscitation. The patient's primary workup showed elevation in BUN and creatinine with severe acidosis. For that reason, we have been consulted. Reviewing the record for the patient back in February, creatinine 0.7. Today creatinine 3.6, GFR of 17 with acidosis. Bicarb down to 11. Past Medical History: Includes; 1. Paraplegia. 2. CVA. 3. Hep C. 4. Multiple sclerosis. Family History: Non-obtainable. Social History: Non-obtainable. Review of Systems: Non-obtainable. Physical Examination: General: When I saw the patient, the patient on vent, on a pressor. Vital Signs: Blood pressure 98/60, pulse of 110. Chest: Crackles bilateral. Heart: S1, S2. Tachycardic. Systolic murmur. Abdomen: Soft. Colostomy. Extremities: No edema. Neuro: The patient on vent, sedated. Laboratory Data: Sodium 147, potassium 4.5, bicarb 11, BUN 22, creatinine 3.6, GFR of 17, blood sugar 219. Calcium 8.8. AST 715, ALT 529, albumin of 2.4. WBC 5.3, H and H 13.1/42.5. Assessment And Plan: 1. Acute kidney injury secondary to poor perfusion, acute tubular necrosis secondary to shock with toxic acute tubular necrosis. I am going to continue on fluid resuscitation and we will monitor. Apparently, the patient is DNR/DNI currently. 2. Hypertension, currently hypotension and shock. Continue supportive measure. 3. High anion gap metabolic acidosis secondary to renal failure. We will start the patient on bicarb drip. We will follow up. 4. Hypernatremia secondary to prerenal. We will continue aggressive hydration. 5. Shock with multiorgan failure including liver, kidney, and metabolic encephalopathy. Continue supportive care, discussed with the family the tearment option given the multiple comorbid condition for the patient and current presentation of the patient family agreed on DNR-DNI . time spend exam the patient face to face , reviewing the data lab and radiology , placing order , discussing the case with the pricing/signage team member including nursing staff and discussing with the hospitalist 65 min CHELA Voice ID: [id number] Report ID: [id number] JM
[2021-05-01 15:24] LABS: Blood Morphology Comment NOT SEEN (NOT SEEN); Platelet Estimate DECR
[2021-05-01] MEDS ORDERED: EPINEPHrine 1 MG/10 ML SYR IV ONE (17:00)
--- NOTE | 2021-05-01 17:01 | ER ---
Nurse's Notes [facility] Min Name: Geoff Velez Age: 55 yrs Sex: Male : 1965 Arrival Date: 05/01/2021 Time: 05:21 Bed 7 Private MD: Diagnosis: Acute respiratory failure with hypoxia;Cardiac arrhythmia, unspecified;Cardiac arrest due to other underlying condition Presentation: 05/01 05:15 Chief complaint: EMS states: called out for respiratory distress, EMS intubated on as6 arrival, during transfer to hospital pt lost a pulse and started compressions in route to ER. 05:15 Care prior to arrival: Oral intubation, CPR via thumper Medication(s) given: Normal as6 saline infusion, 1000 mL, epi x3. Compressions began prior to arrival. 05:15 Method Of Arrival: EMS: [facility] as6 05:15 Acuity: MARKEL 1 as6 07:00 Coronavirus screen: At this time, the client does not indicate any symptoms associated jd3 with coronavirus-19. Ebola Screen: Patient negative for fever greater than or equal to 101.5 degrees Fahrenheit, and additional compatible Ebola Virus Disease symptoms. Initial Sepsis Screen: Does the patient meet any 2 criteria? Systolic BP < 90 mmHg. Altered Mental Status. HR > 90 bpm. Yes Does the patient have a suspected source of infection? Yes: Acute abdominal pain If YES to both, name of provider notified: Teodoro Sanchez MD. Risk Assessment: Do you want to hurt yourself or someone else? Unable to obtain. Onset of symptoms was May 01, 2021. - Immunization history:: Adult Immunizations up to date. - Family history:: not pertinent. - Social history:: Smoking status: unknown. Screenin:13 Abuse screen: Denies threats or abuse. Nutritional screening: No deficits noted. jd3 Tuberculosis screening: No symptoms or risk factors identified. Fall Risk Total Arciniega Fall Scale indicates No Risk (0-24 pts). Sepsis Screening: . Infection: Patient has suspected or documented infection. Assessment: 05:15 CPR assessment: unresponsive, intubated, Ambu ventilation, pale, pulses present w/ as6 compressions. 05:15 Cardiac rhythm is PEA. as6 07:31 CPR assessment: intubated. Cardiac rhythm is asystole. jd3 07:31 CPR assessment: unresponsive, intubated, Ambu ventilation, pale, pulses present w/ jd3 compressions. 07:40 General: Appears distressed, ill, Behavior is unresponsive. intubated. Pain: Unable to jd3 use pain scale. Patient is intubated. Patient is unresponsive. Neuro: Level of Consciousness is unresponsive, intubated. Cardiovascular: Heart tones present Rhythm is sinus tachycardia. Respiratory: Airway via oral intubation Breath sounds are clear bilaterally. Derm: Skin is Skin is dusky, Skin temperature is hot. 08:00 Reassessment: No changes from previously documented assessment. Patient and/or family jd3 updated on plan of care and expected duration. Pain level reassessed. 08:15 Reassessment: No changes from previously documented assessment. Patient and/or family jd3 updated on plan of care and expected duration. Pain level reassessed. 08:30 Reassessment: No changes from previously documented assessment. Patient and/or family jd3 updated on plan of care and expected duration. Pain level reassessed. 08:45 Reassessment: No changes from previously documented assessment. Patient and/or family jd3 updated on plan of care and expected duration. Pain level reassessed. 09:00 Reassessment: No changes from previously documented assessment. Patient and/or family jd3 updated on plan of care and expected duration. Pain level reassessed. 09:15 Reassessment: No changes from previously documented assessment. Patient and/or family jd3 updated on plan of care and expected duration. Pain level reassessed. family at bedside talking with doctor Franks. 09:30 Reassessment: No changes from previously documented assessment. Patient and/or family jd3 updated on plan of care and expected duration. Pain level reassessed. 09:45 Reassessment: No changes from previously documented assessment. Patient and/or family jd3 updated on plan of care and expected duration. Pain level reassessed. 10:00 Reassessment: No changes from previously documented assessment. Patient and/or family jd3 updated on plan of care and expected duration. Pain level reassessed. 10:15 Reassessment: No changes from previously documented assessment. Patient and/or family jd3 updated on plan of care and expected duration. Pain level reassessed. charting continued in [facility]. 17:01 Reassessment: pt taken by undertaker to [facility] home. jd3 Vital Signs: 05:34 BP 40 / 12; Pulse Ox 83% on ETT ambu; as6 05:40 BP 84 / 62; Pulse 167; Pulse Ox 94% on ETT ambu; as6 05:45 BP 86 / 47; Pulse 173; Pulse Ox 3% on ETT ambu; as6 07:17 BP 112 / 97; Pulse 117; Resp 19 S; Pulse Ox 86% on ETT vent; jd3 08:17 BP 81 / 42; Pulse 118; Resp 18 A; Temp 99.1(C); jd3 08:30 BP 86 / 74; Pulse 111; Resp 18 A; Pulse Ox 96% on ETT vent; jd3 08:50 BP 98 / 75; Pulse 111; Resp 18 A; Pulse Ox 97% on ETT vent; jd3 10:17 BP 102 / 87; Pulse 109; Resp 19 A; Pulse Ox 87% on ETT vent; jd3 ED Course: 05:21 Patient arrived in ED. wm 05:26 Inserted saline lock: 20 gauge in right hand, using aseptic technique. Maintain EMS IV. as6 Dressing intact. Good blood return noted. Site clean \T\ dry. Gauge \T\ site: IO l leg . 05:34 Assisted provider with central line placement. Set up central line tray. Triple lumen as6 line placed in right femoral. Line placed by Teodoro Sanchez MD Placement verified by CXR, blood return, Dressed with Tegaderm, Blood was collected. Patient tolerated well. 05:50 Varma cath inserted, using sterile technique, 16 Fr., by mn, balloon inflated, to as6 gravity drainage, NGT: inserted 14 Fr. via right nare. verified placement of air over stomach, verified return of gastric contents, Placement verified by X-ray, to continuous suction. Returned gastric contents. Amount of gastric contents removed by suction 1200ml. 05:54 Teodoro Sanchez MD is Attending Physician. eric 06:15 XRAY Chest (1 view) In Process Unspecified. EDMS 06:45 Jose Villalobos RN is Primary Nurse. as6 06:46 Alena Franks MD is Hospitalizing Provider. eric 07:00 Patient has correct armband on for positive identification. Placed in gown. Bed in low jd3 position. Call light in reach. Side rails up X2. Adult w/ patient. vehicle monitor technician on. Pulse ox on. NIBP on. 07:15 Primary Nurse role handed off by Jose Villalobos, EVA jd3 07:15 Gabriel Maki, EVA is Primary Nurse. jd3 07:33 Triage completed. as6 10:17 Patient admitted, IV remains in place. jd3 10:17 Arm band placed on. jd3 Administered Medications: 05:19 Drug: Sodium Bicarbonate 1 amp Route: IVP; Site: Other; as6 05:20 Drug: Calcium Chloride 1 grams Route: IVP; Site: Other; as6 05:21 Drug: EPINEPHrine 0.1mg/mL 1:10,000 1 mg Route: IVP; Site: Other; as6 05:24 Drug: EPINEPHrine 0.1mg/mL 1:10,000 1 mg Route: IVP; Site: Other; as6 05:26 Drug: EPINEPHrine 0.1mg/mL 1:10,000 1 mg Route: IVP; Site: Other; as6 05:28 Drug: Sodium Bicarbonate 1 amp Route: IVP; Site: right hand; as6 05:29 Drug: EPINEPHrine 0.1mg/mL 1:10,000 1 mg Route: IVP; Site: right hand; as6 05:33 Drug: EPINEPHrine 0.1mg/mL 1:10,000 1 mg Route: IVP; Site: right femoral; as6 05:34 Drug: Sodium Bicarbonate 1 amp Route: IVP; Site: right femoral; as6 06:00 Drug: NS 0.9% 1000 ml Route: IV; Rate: 1 bolus; Site: right femoral; al4 06:00 Drug: Digoxin 0.5 mg Route: IVP; Site: right femoral; al4 06:30 Drug: Levophed (norepinephrine) (4 mg/250 mL D5W 4 mcg/min {Note: started by night jd3 shift.} Route: IV; Rate: calculated rate; Site: right femoral; 07:05 Drug: NS 0.9% 1000 ml Route: IV; Rate: 1 bolus; Site: right femoral; al4 07:25 Drug: NS 0.9% 1000 ml Route: IV; Rate: 125 ml/hr; Site: right femoral; jd3 07:28 Drug: Tylenol Suppository 1300 mg Route: SC; jd3 07:32 Drug: EPINEPHrine 0.1mg/mL 1:10,000 1 mg Route: IVP; Site: right femoral; jd3 07:32 Drug: Calcium Chloride 1 grams Route: IVP; Site: right femoral; jd3 07:32 Drug: NS 0.9% 1000 ml Route: IV; Rate: 1 bolus; Site: right femoral; jd3 07:35 Drug: EPINEPHrine 0.1mg/mL 1:10,000 1 mg Route: IVP; Site: right femoral; jd3 07:45 Drug: ProTONIX (pantoprazole) 40 mg Route: IVP; Site: right femoral; jd3 07:47 Drug: Solu-CORTEF (hyrdoCORTISONE) 100 mg Route: IVP; Site: right femoral; jd3 07:50 Drug: Zosyn (piperacillin-tazobactam) 3.375 grams Route: IVPB; Infused Over: 60 mins; jd3 Site: right femoral; 08:10 Drug: Terry-Synephrine (phenylephrine) 100 mcg/min Route: IV; Rate: calculated rate; jd3 Site: right femoral; 10:08 Drug: vancoMYCIN 1 grams {Note: left leg IO.} Route: IVPB; Infused Over: 2 hrs; Site: [facility] Other; 10:54 Not Given (charted per [facility]): Levophed (norepinephrine) (4 mg/250 mL D5W 4 mcg/min jd3 IV at calculated rate Per protocol; (final concentration is 16 microgram/mL) Outcome: 06:52 Decision to Hospitalize by Provider. eric 07:00 Outcome Resuscitation successful jd3 10:16 Admitted to ER Hold. Please see [facility] for further documentation. jd3 10:16 Condition: stable 10:16 Instructed on the need for admit. 17:00 Patient left the ED. jd3 Signatures: Dispatcher [employer] EDMS Teodoro Sanchez MD MD cha Davies, Jonathon, RN RN [email or web address] Leonarda Hathaway Ashby, RN RN as6 Cj Mcdonald Corrections: (The following items were deleted from the chart) 06:42 06:42 PMHx: Multiple Sclerosis; eric eric 06:42 06:42 PMHx: HEP C; eric eric 06:42 06:42 PMHx: Paraplegia; eric eric 06:42 06:42 PMHx: CVA; eric eric 06:42 06:42 PMHx: postlaminectomy syndrome; [facility] 08:14 07:50 Solu-CORTEF (hyrdoCORTISONE) 100 mg IVP in right femoral jd3 j 10:17 10:12 Reassessment: No changes from previously documented assessment. Patient and/or jd3 family updated on plan of care and expected duration. Pain level reassessed. charting continued in [place] [id number]
--- NOTE | 2021-05-01 17:34 | P.HP ---
Certification for Inpatient Patient admitted to: Inpatient With expected LOS: >2 Midnights Patient will require the following post-hospital care: None Practitioner: I am a practitioner with admitting privileges, knowledge of patient current condition, hospital course, and medical plan of care. Services: Services provided to patient in accordance with Admission requirements found in Title 42 Section 412.3 of the Code of Federal Regulations Patient History Date of Service: 05/01/21 Reason for admission: Acute fulminant hepatitis History of Present Illness: Patient is a 55-year-old gentleman who came in from [facility] in cardiac arrest. Patient is living at the shelter because of lower back surgery and has not been able to ambulate after the surgery. He lives with his sister for a short time but she was not able to care for him completely. She is his medical power of mergers and acquisitions attorney. Patient also has a history of multiple sclerosis but is not being treated with any medication. Patient has had a questionable prior CVA. Patient was CPR in progress. Patient was resuscitated successfully initially in the emergency room. Patient was placed on vasopressors. Patient appeared to have blood in his colostomy but he also had elevated liver enzymes and a severe coagulopathy. Blood cultures were obtained. Decision was made to admit the patient to the hospital for further treatment. Patient was on mechanical ventilator, and patient continued on vasopressor support. Patient was started on antibiotic therapy. At this time, patient will be admitted for further treatment. Allergies No Known Allergies Allergy (Verified 08/29/20 22:30) Home Medications: Cholecalciferol (Vitamin D3) [Vitamin D3] 1,000 unit PO DAILY 08/30/20 Docusate [Colace Cap*] 200 mg PO DAILY 08/30/20 Duloxetine [Cymbalta *] 60 mg PO DAILY 08/30/20 Mag Hydroxide 8% [Milk Of Magnesia*] 30 ml PO DAILY PRN 08/30/20 Melatonin/Pyridoxine [Melatonin 5 mg Tablet] 5 mg PO BEDTIME 08/30/20 Mirtazapine [Remeron] 30 mg PO BEDTIME 08/30/20 Folic Acid 1 mg PO DAILY #90 tablet 08/31/20 Metoprolol Tartrate [Lopressor*] 25 mg PO BID 6AM 6PM #60 tab 08/31/20 Multivitamin with Iron [Daily Vitamin + Iron] 1 each PO DAILY #90 tablet 08/31/20 Pantoprazole [Protonix Tab] 40 mg PO DAILY #30 tab 08/31/20 - Past Medical/Surgical History -: paraplegia -: CVA -: Hep C -: multiple sclerosis - Social History Smoking Status: Unknown if ever smoked Place of Residence: [facility] Review of Systems is unable to be obtained Physical Examination - Vital Signs Temperature: 96.6 F Blood Pressure: 49/25 Pulse: 102 Respirations: 18 Pulse Ox (%): 84 - Physical Exam General: Other (Intubated and sedated) Cardiovascular: Regular rate/rhythm, Normal S1 S2 Gastrointestinal: Normal bowel sounds, Soft and benign, Non-distended Musculoskeletal: No clubbing, No swelling Neurological: Normal gait, Normal strength at 5/5 x4 extr, Normal tone, Sensation intact, Cranial nerves 3-12 intact - Studies Laboratory Data (last 24 hrs) 05/01/21 06:36: WBC 10.90, Hgb 15.9, Hct 52.4 H, Plt Count 180 05/01/21 06:36: Sodium 151 H, Potassium 4.2, BUN 23 H, Creatinine 3.67 H, Glucose 138 H, Magnesium 2.5 H D, Total Bilirubin 0.6, AST 202 H, ALT 180 H, Alkaline Phosphatase 127 H 05/01/21 06:08: PT 16.0 H, INR 1.39 Assessment & Plan - Problems (Diagnosis) (1) Septic shock Status: Acute (2) Hepatitis C Status: Acute (3) Multiple sclerosis Status: Acute (4) Perforation of colon Status: Acute - Advance Directives Does patient have a Living Will: No Does patient have a Durable POA for Healthcare: No
--- NOTE | 2021-05-02 07:49 | EKG ---
Test Date: 2021-05-01 Test Time: 07:42:59 Ditch Rider: MEASUREMENT RESULTS: Intervals: Rate: 152 SD: QRSD: 90 QT: 310 QTc: 492 [place]: P: SD: QRS: 62 T: 14 INTERPRETIVE STATEMENTS: Supraventricular tachycardia with frequent premature ventricular complexes Marked ST abnormality, possible inferior subendocardial injury Abnormal ECG Compared to ECG 05/01/2021 06:03:12 Ventricular premature complex(es) now present Sinus tachycardia no longer present ST (T wave) deviation still present Electronically Signed On 05-02-21 07:45:52 SIGN PAINTER by Judah Beth
--- NOTE | 2021-05-02 07:50 | EKG ---
Test Date: 2021-05-01 Test Time: 06:03:12 Product Director: MEASUREMENT RESULTS: Intervals: Rate: 144 NE: 166 QRSD: 84 QT: 304 QTc: 470 [place]: P: 72 NE: 166 QRS: 68 T: 167 INTERPRETIVE STATEMENTS: Sinus tachycardia Marked ST abnormality, possible anteroseptal subendocardial injury Abnormal ECG Compared to ECG 08/26/2020 06:14:18 ST (T wave) deviation now present Electronically Signed On 05-02-21 07:45:53 PRODUCT SAFETY TECHNICIAN by Judah Beth
== END 2021-05-01 17:01 | disposition expired | DRG 208 ==
LOC: ER 05:20 → ERHOLD 09:00
PROVIDERS: ADMIT Hospitalist; ATTEND Hospitalist
PROC: 5A1935Z Respiratory Ventilation, Less than 24 Consecutive Hours (ICD-10-PCS; principal; 2021-05-01)
PROC: 0BH17EZ Insertion of Endotracheal Airway into Trachea, Via Natural or Artificial Opening (ICD-10-PCS; 2021-05-01)
PROC: 5A12012 Performance of Cardiac Output, Single, Manual (ICD-10-PCS; 2021-05-01)
PROC: 05HY33Z Insertion of Infusion Device into Upper Vein, Percutaneous Approach (ICD-10-PCS; 2021-05-01)
DX: J96.01 Acute respiratory failure with hypoxia (principal); A41.9 Sepsis, unspecified organism; N17.0 Acute kidney failure with tubular necrosis; G93.41 Metabolic encephalopathy; R65.21 Severe sepsis with septic shock; K63.1 Perforation of intestine (nontraumatic); R57.9 Shock, unspecified; E87.2 Acidosis; E87.0 Hyperosmolality and hypernatremia; D68.9 Coagulation defect, unspecified; I46.8 Cardiac arrest due to other underlying condition; I49.9 Cardiac arrhythmia, unspecified; B19.20 Unspecified viral hepatitis C without hepatic coma; G35 Multiple sclerosis; Z79.899 Other long term (current) drug therapy; Z86.73 Personal history of transient ischemic attack (TIA), and cerebral infarction without residual deficits; Z66 Do not resuscitate; Z20.822 Contact with and (suspected) exposure to COVID-19
CPT/HCPCS: 36415; 71045; 71260; 74177; 80048; 80053; 80076; 82947; 83605; 83735; 83880; 84145; 84484; 85025; 85610; 85730; 87040; 87205; 92950; 93005; 94002; 99291; 99292; C9113; J0171; J1160; J1720; J2354; J2370; J2543; J3370; J7030; J7040; J7050; J7060; P9047; Q9967; U0003